=== PATIENT | female | born 2000 | race Caucasian/White ===

== ENCOUNTER 2023-11-06 20:32 | Emergency (ER) | payer OTHER, SELFPAY ==
[2023-11-06 20:47] VITALS: BP 127/67; PULSE 105; RESP 18; TEMP 37.2; O2SAT 96; BMI 32.1
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
[2023-11-06] MEDS: Doxycycline Monohydrate 100 MG CAPSULE PO (22:02)
[2023-11-06] MEDS: metroNIDAZOLE 500 MG TABLET PO (22:02)
[2023-11-06] MEDS: Fluconazole 150 MG TABLET PO (22:02)
[2023-11-06] MEDS: cefTRIAXone sodium 500 MG, Lidocaine HCl 1 % MPF 1 ML IM (22:03)
[2023-11-06 22:24] VITALS: BP 127/67; PULSE 88; RESP 18; TEMP 37.2; O2SAT 98
[2023-11-07 01:28] LABS: CT PCR NOT DETECTED (Not Detect.); NG PCR DETECTED (Not Detect.)
== END 2023-11-06 22:25 | disposition home or self-care (01) ==
PROVIDERS: Emergency Provider Internal Medicine
DX: N89.8 Other specified noninflammatory disorders of vagina (principal); Z20.2 Contact with and (suspected) exposure to infections with a predominantly sexual mode of transmission
CPT/HCPCS: 0353U; 96372; 99282; 99284; J0696

== ENCOUNTER 2024-05-01 16:18 | Inpatient (IN) | payer OTHER, SELFPAY ==
[2024-05-01 15:35] VITALS: BP 148/70; PULSE 118; O2SAT 98; BMI 26.2
--- NOTE | 2024-05-01 15:36 | MHC.CARE ---
Pt brought in by Yesica AKINS and Co-response clinician on a Section 12a with a disposition of IPLOC. [facility] to send assessment. Pt is reportedly manic, agitated, religiously preoccupied, endorsing SI/HI and just had children removed by DCF this past weekend.
[2024-05-01 16:11] LABS: MANUAL DIFF FLAG NO
--- NOTE | 2024-05-01 16:14 | PC.NURSE ---
shawna from home on a section 12 placed by [facility]. pt presents to ED after PD was called for crisis d/t SI/HI/manic behavior. calm/cooperative during EMS transport. no known diagnosis - familial hx of bipolar disorder/schizophrenia. recently had child taken by DCF. upon pod arrival - pt a&ox4. vss and up to date. pt calm/cooperative. pt changed over by security - belongings placed in locker #5. urine obtained/sent to lab. pt on RA w/o difficulty. no sob/wob noted. respirations even/unlabored. plan of care ongoing.
[2024-05-01 16:15] LABS: Basophils Percent Auto 0.2 % (0-2); Eosinophils Absolute Auto 0.1 X10*3/uL (0.0-0.4); Eosinophils Percent Auto 0.9 % (0-4); Hematocrit 39.4 % (37.0-47.0); Hemoglobin 13.2 g/dl (12.0-16.0); Imm Gran Abs Auto 0.02 X10*3/uL (0.00-0.03); Imm Gran Pct Auto 0.4 % (0.0-0.4); Lymphocytes Absolute Auto 1.5 X10*3/uL (1.2-4.9); Lymphocytes Percent Auto 26.3 % (20-40); Mean Corpuscular HGB Conc 33.5 g/dl (31.0-35.0); Mean Corpuscular Hemoglobin 29.9 pg (27.0-33.0); Mean Corpuscular Volume 89.1 fL (80.0-98.0); Mean Platelet Volume 10.6 fL (9.4-12.3); Monocytes Absolute Auto 0.5 X10*3/uL (0.1-1.2); Monocytes Percent Auto 8.8 % (2-11); Neutrophils Absolute Auto 3.5 x10*3/uL (2.0-8.3); Neutrophils Percent Auto 63.4 % (45-73); Platelet Count 221 X10*3/uL (160-400); Red Blood Count 4.42 X10*6/uL (4.20-5.50); Red Cell Distribution Width 13.1 % (11.0-16.0); White Blood Count 5.6 X10*3/uL (4.8-10.8)
[2024-05-01 16:16] LABS: Appearance Urine Clear; Color Urine Yellow; Glucose Urine UA Negative (Negative); Leukocyte Esterase Urine Negative (Negative); Nitrite Urine Negative (Negative); Specific Gravity - Urine >= 1.030 (1.005-1.025); UMIC TRIGGER UACC YES; Urine Blood Moderate (2+) (Negative); Urine Ketones Trace mg/dL (Negative); Urine Protein Trace mg/dL (Neg-Trace)
[2024-05-01 16:26] LABS: Amphetamine Screen Urine Not Detected (Not Detect); Barbiturates, Urine Not Detected (Not Detect); Benzodiazepines Screen Urine Not Detected (Not Detect); Buprenorphine Scr Not Detected (Not Detect); Cannabinoid Screen Urine POSITIVE (Not Detect); Cocaine Screen Urine Not Detected (Not Detect); Fentanyl, urine Not Detected (Not Detect); Methadone Screen, Urine Not Detected (Not Detect); Opiate Screen Urine Not Detected (Not Detect); Oxycodone Screen Urine Not Detected (Not Detect); Phencyclidine Screen Urine Not Detected (Not Detect)
[2024-05-01 16:29] LABS: Bacteria Urine None Seen (None Seen); Calcium Oxalate Crystals Urine Present; Hyaline Casts Urine 0-2 /LPF (0-2); RBC Urine 0-2 /HPF (0-2); WBC Urine 0-5 /HPF (0-5)
[2024-05-01 16:37] LABS: Alanine Aminotransferase 16 U/L (0-31); Albumin Level 4.4 g/dL (3.5-5.0); Alkaline Phosphatase 58 U/L (39-117); Anion Gap 13 (12-20); Aspartate Amino Transferase 27 U/L (5-31); Bilirubin Total 0.2 mg/dL (0.0-1.0); Blood Urea Nitrogen 15 mg/dL (9-16); Calcium 9.4 mg/dL (8.4-10.2); Carbon Dioxide 22 mmol/L (22-29); Chloride 109 mmol/L (96-108); Creatinine Clr Calc Pharmacy 97.3; Estimated Glomerular Filt Rate > 60; Glucose Random 104 mg/dL (60-115); Sodium 140 mmol/L (135-145); Total Protein 7.6 g/dL (6.5-8.0)
--- NOTE | 2024-05-01 16:37 | ED_ITS ---
HPI - Psych General Chief Complaint: Psychiatric Symptoms Stated Complaint: SEC 12 BY NADYAN, MANIC EP PER EMS Time Seen by Provider: 05/01/24 15:45 History of Present Illness HPI Narrative: patient is a 24-year-old female placed on a section 12 by 10. Patient came to the ED after crisis was called due to manic behavior. Patient denies any suicidal homicidal ideation. Family history of bipolar / schizophrenia. Patient was taken by [facility] as a child. Related Data Previous Rx's ?Medication ?Instructions ?Recorded doxycycline hyclate 100 mg tablet 100 mg PO BID 7 days #14 tabs 11/06/23 fluconazole 150 mg tablet 150 mg PO Q3D 2 doses #1 tab 11/06/23 metronidazole 500 mg tablet 500 mg PO BID 7 days #14 tabs 11/06/23 Allergies Allergy/AdvReac Type Severity Reaction Status Date / Time latex Allergy Rash Verified 05/01/24 15:38 Review of Systems 2 Review of Systems: No fever no chills no chest pain or shortness of breath no nausea no vomiting Yes all other systems are reviewed and are negative [facility] Past Medical History Attestation statement: The following information was validated with the patient. Social History Social History Alcohol intake: current Alcohol intake frequency: holidays/special occasions only Smoked in Last 30 Days: No Use of substances other than those prescribed or required for medical reasons: Yes Substance Use Type: Marijuana Advance Directives: No Advance Directives Information Provided: No Do you have a plan to hurt others: No Plan Patient : No Physical Exam 2 Vital Signs: Vital Signs: BMI result Body Mass Index 26.2 Appearance: Alert. Oriented X3. No acute distress. Eyes: Pupils equal, round and reactive to light. ENT: Pharynx normal. Neck: Normal inspection. Neck supple. No lymph nodes noted. No crepitus CVS: Normal heart rate and rhythm. Pulses normal. Normal S1 and S2 Respiratory: No respiratory distress. Breath sounds normal. No Wheezing. No rales Abdomen: Soft and nontender. No rigidity. No distention. good BS x4 Skin: Skin warm and dry. Normal skin color. Normal skin turgor. Extremities: No lower extremity edema. Neurovascular intact to all extremities. No Lacerations. No Rash Neuro: Oriented X 3. No motor deficit. No sensory deficit. Moving all extermities. No slurred speech. Cranial nerves grossly intact Medical Decision Making Medical Decision Making [facility] Narrative: Patient well-appearing a section 12 was placed by [facility]. Currently not suicidal homicidal. History of manic behavior. Right now cooperative. Family history of bipolar / schizophrenia. Recent stressors in life. Patient is currently awaiting crisis evaluation. Differential Diagnosis Differential Diagnoses: The differential diagnosis associated with the presentation includes Bipolar, schiz0 Admission/Observation Consideration of admission/observation: Escalation of care including admission/observation considered Lab Data [facility] Lab Attestation statement: I reviewed the patient's lab results. 05/01/24 16:05 05/01/24 16:05 Labs: Lab Results 05/01/24 05/01/24 Range/Units 16:05 16:06 WBC 5.6 (4.8-10.8) X10*3/uL RBC 4.42 (4.20-5.50) X10*6/uL Hgb 13.2 (12.0-16.0) g/dl Hct 39.4 (37.0-47.0) % MCV 89.1 (80.0-98.0) fL MCH 29.9 (27.0-33.0) pg MCHC 33.5 (31.0-35.0) g/dl RDW 13.1 (11.0-16.0) % Plt Count 221 (160-400) X10*3/uL MPV 10.6 (9.4-12.3) fL Immature Gran % (Auto) 0.4 (0.0-0.4) % Neut % (Auto) 63.4 (45-73) % Lymph % (Auto) 26.3 (20-40) % [place] % (Auto) 8.8 (2-11) % Eos % (Auto) 0.9 (0-4) % Baso % (Auto) 0.2 (0-2) % Lymph # (Auto) 1.5 (1.2-4.9) X10*3/uL [place] # (Auto) 0.5 (0.1-1.2) X10*3/uL Eos # (Auto) 0.1 (0.0-0.4) X10*3/uL Baso # (Auto) 0.0 (0.0-0.2) X10*3/uL Abs Immat Gran (auto) 0.02 (0.00-0.03) X10*3/uL Absolute Neuts (auto) 3.5 (2.0-8.3) x10*3/uL Absolute Nucleated RBC 0.000 (0.0-0.012) X10*3/uL Nucleated RBC % (auto) 0.0 (0.0-0.2) /100WBC Sodium 140 (135-145) mmol/L Potassium 4.0 (3.3-5.1) mmol/L Chloride 109 H (96-108) mmol/L Carbon Dioxide 22 (22-29) mmol/L Anion Gap 13 (12-20) BUN 15 (9-16) mg/dL Creatinine 0.82 (0.5-1.4) mg/dL Estim Creat Clear Calc 97.3 Estimated GFR > 60 Random Glucose 104 (60-115) mg/dL Calcium 9.4 (8.4-10.2) mg/dL Total Bilirubin 0.2 (0.0-1.0) mg/dL Direct Bilirubin < 0.2 (0.0-0.5) mg/dL AST 27 (5-31) U/L ALT 16 (0-31) U/L Alkaline Phosphatase 58 (39-117) U/L Total Protein 7.6 (6.5-8.0) g/dL Albumin 4.4 (3.5-5.0) g/dL Urine Color Yellow Urine Appearance Clear Urine pH 6.0 (5.0-9.0) Ur Specific [place] >= 1.030 H (1.005-1.025) Urine Protein Trace (Neg-Trace) mg/dL Urine Glucose (UA) Negative (Negative) mg/dL Urine Ketones Trace (Negative) mg/dL Urine Blood Moderate (2+) H (Negative) Urine Nitrite Negative (Negative) Ur Leukocyte Esterase Negative (Negative) Urine RBC 0-2 (0-2) /HPF Urine WBC 0-5 (0-5) /HPF Ur Squamous Epith Cells 3-5 (0-2) /HPF Calcium Oxalate Crystal Present Urine Bacteria None Seen (None Seen) Hyaline Casts 0-2 (0-2) /LPF Urine Opiates Screen Not Detected (Not Detect) Ur Buprenorphine Scrn Not Detected (Not Detect) ng/mL Ur Oxycodone Screen Not Detected (Not Detect) ng/mL Urine Methadone Screen Not Detected (Not Detect) ng/mL Urine Fentanyl Screen Not Detected (Not Detect) Ur Barbiturates Screen Not Detected (Not Detect) Ur Phencyclidine Scrn Not Detected (Not Detect) Ur Amphetamines Screen Not Detected (Not Detect) U Benzodiazepines Scrn Not Detected (Not Detect) Urine Cocaine Screen Not Detected (Not Detect) U Marijuana (THC) Screen POSITIVE H (Not Detect) Ethyl Alcohol < 10 mg/dL Independent Historian Clinical information obtained from an independent historian. History obtained from or confirmed by: EMS Chronic Conditions history Social Determinants Patient?s care significantly limited by Social Determinants of Health including: Low income and Problems related to primary support group Discharge Plan Discharge Clinical Impression: Suicidal ideation Patient Disposition: Still a Patient Prescriptions: No Action fluconazole 150 mg tablet 150 mg PO Q3D Qty: 1 0RF metronidazole 500 mg tablet 500 mg PO BID 7 Days Qty: 14 0RF doxycycline hyclate 100 mg tablet 100 mg PO BID 7 Days Qty: 14 0RF Interventions: [place]ck[place]-Suicide Risk Severity Scale Last Done: 05/01/24 16:42 Print Language: Belarusian
[2024-05-01 17:02] LABS: Bilirubin Direct < 0.2 mg/dL (0.0-0.5); Ethanol < 10 mg/dL
[2024-05-02 06:13] VITALS: BP 139/84; PULSE 80; RESP 16; TEMP 36.2; O2SAT 98
--- NOTE | 2024-05-02 06:32 | PC.NURSE ---
Patient slept through the night, no distress observed/reported, no behavior and safety concerns, VSS, disposition per [facility] is section 12 inpatient bed search, will continue to monitor
--- NOTE | 2024-05-02 06:43 | PC.NURSE ---
Patient slept through the night, no distress observed/reported, currently not on any medication, no behavior and safety concerns, VSS, disposition per [facility] is section-12 inpatient bed search, will continue to monitor
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
--- NOTE | 2024-05-02 08:35 | PHA.MEDREC ---
Addendum entered by Maxine Wolf RPh 05/02/24 08:40: reviewed by [facility]. Original Note: Pharmacy Consult ? Medication Reconciliation Pharmacy has reviewed the medication reconciliation done by nursing.
[2024-05-02] MEDS: Nicotine Polacrilex 2 MG GUM BUCCAL ×5 (08:36→23:40)
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
[2024-05-02] MEDS: LORazepam 1 MG TABLET 2 MG PO (12:46)
[2024-05-02 13:12] LABS: UPreg QC Valid YES; Urine Pregnancy NEGATIVE (NEGATIVE)
--- NOTE | 2024-05-02 13:29 | PC.NURSE ---
pt told she is a section and was initially very upset and crying but after speaking with father Seymour, she ws calm and did accept ativan, states she has 3 years of sleep to catch up on and was pleasant
[2024-05-02 16:39] VITALS: BP 111/60; PULSE 72; RESP 15; TEMP 36.6; O2SAT 98
[2024-05-02 16:51] VITALS: BP 137/77; PULSE 95; RESP 16; TEMP 36.6; O2SAT 97
[2024-05-02 17:32] VITALS: BMI 25.2
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
[2024-05-02 20:00] VITALS: BP 123/80; PULSE 95; RESP 16; TEMP 36.8; O2SAT 99
[2024-05-02] MEDS: hydrOXYzine HCL 25 MG TABLET PO (23:54)
--- NOTE | 2024-05-03 00:33 | PC.NURSE ---
Mary declined Flu vaccine when offered tonight, stated I'll take tomorrow, I just want to sleep and my arm is sore.
[2024-05-03 07:00] VITALS: BMI 25.2
[2024-05-03 07:05] VITALS: BP 121/75; RESP 14; TEMP 36.3; O2SAT 99
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
[2024-05-03] MEDS: Flu Vacc TS2024-25(6mos up)/PF 0.5 ML SYRINGE IM (10:30)
[2024-05-03] MEDS: Nicotine Polacrilex 2 MG GUM BUCCAL ×7 (11:20→23:51)
--- NOTE | 2024-05-03 11:57 | MHC.CLN ---
RE; CONSULT HT 63 WT 142# IBW 115#+/-10% PT IS 123% IBW INDICATES OBESE FOR HT PT REPORTED 40# WT LOSSX 6MONTHS CURRENT WT 64.6KG (05/02/24) PREVIOUS 82.3KG (11/06/23) PT TRIGGERS FOR 22% SIGNIFICANT WT LOSS X 6 MONTHS PT RECEIVING REGULAR DIET NO S/S MALNUTRITION AT THIS TIME MONITOR PO INTAKE RECOMMEND GOAL OF WT MAINTENANCE AT THIS TIME IF PO INTAKE <25% X 3 DAYS, RECOMMEND ADDING NUTRITION SUPPLEMENT WEEKLY WTs
[2024-05-03 14:46] LABS: Estimated Average Glucose 100 mg/dL; Hemoglobin A1C 116.7806 umol/L; Hemoglobin A1c % 5.1 % (<6.0); Total Hemoglobin (HGBA1C) 3564.7351 umol/L
[2024-05-03 14:57] LABS: Cholesterol 156 mg/dL (<200); HDL Cholesterol 31 mg/dL (>40); LDL Cholesterol Calculated 97 mg/dL (<100); Triglycerides 144 mg/dL (<150)
[2024-05-03] MEDS: ARIPiprazole 2 MG TABLET PO (15:07)
[2024-05-03 15:12] LABS: Free T4 (Free Thyroxine) 1.11 ng/dL (0.71-1.85); Thyroid Stimulating Hormone 0.81 uIU/mL (0.32-4.0)
[2024-05-03 15:25] LABS: Folate 11.1 ng/mL (> or = 4.0); Vitamin B12 242 pg/mL (200-900)
[2024-05-03 20:00] VITALS: BP 123/80; PULSE 87; RESP 16; TEMP 36.6; O2SAT 100
[2024-05-03] MEDS: hydrOXYzine HCL 25 MG TABLET PO (22:19)
[2024-05-03] MEDS: traZODone HCL 50 MG TABLET PO (23:49)
[2024-05-04 07:33] VITALS: BP 120/64; PULSE 65; RESP 16; TEMP 36.5; O2SAT 97
[2024-05-04] MEDS: ARIPiprazole 2 MG TABLET 4 MG PO (09:09)
[2024-05-04] MEDS: Nicotine Polacrilex 2 MG GUM BUCCAL ×2 (09:09→10:50)
[2024-05-04 12:52] LABS: HIV AB/AG Nonreactive (Nonreactive); HIV Num 1 0.07 S/CO (0.00-0.99); Syphilis Screen Nonreactive (Nonreactive); ~HepC Num1 0.06 S/CO (0.00-0.79); ~Hepatitis C Antibody Nonreactive (Nonreactive)
[2024-05-04 13:11] LABS: Bacterial Vaginosis PCR POSITIVE (Negative); Candida Group PCR NOT DETECTED (Not Detect); Candida glab krusei PCR NOT DETECTED (Not Detect); Trichomonas vaginalis PCR NOT DETECTED (Not Detect)
[2024-05-04] MEDS: Nicotine Polacrilex 2 MG GUM 4 MG BUCCAL ×4 (13:38→21:35)
[2024-05-04 13:42] LABS: CT PCR NOT DETECTED (Not Detect.); NG PCR NOT DETECTED (Not Detect.)
--- NOTE | 2024-05-04 14:46 | HO.PSYCHPN ---
Subjective Subjective Date of Service: 05/04/24 Reason For Visit: Bruna Interim History: calm, cooperative, pleasant. less labile today. agreeable to titrate up to 10 mg abilify daily. c/o poor sleep, awakening in a state of panic and asweat. agreeable to add prazosin 1 mg at HS. reports foul-smelling vaginal discharge, believes she may have STD, asking for testing to be ordered. per staff, pleasant. taking meds. cooperative. feels she is in [facility]. labile, tearful. slept 7 hours. Mental Status Exam Mental Status Exam Narrative: dressed in hospital garb, disheveled. cooperative. fidgety. speech incr rate, nml amount, nml loudness. decr latency. thoughts linear and logical without obvious delusions or paranoia. affect non-labile, normo-intense. mood more even. no SI/SIBI/HI/AVH expressed. Diagnostics Vital Signs (24Hr): Vital Signs - 24 hr 05/03/24 20:00 05/04/24 07:33 Temperature 97.9 F 97.7 F Pulse Rate 87 65 Respiratory Rate 16 16 Blood Pressure 123/80 120/64 Pulse Oximetry 100 97 Oxygen Delivery Method Room Air Room Air BMI result Body Mass Index 25.2 Labs 05/01/24 16:05 05/01/24 16:05 Labs: Laboratory Results - last 48 hr 05/03/24 05/04/24 05/04/24 14:28 11:08 12:07 Estimat Average Glucose 100 Hemoglobin A1c % 5.1 Triglycerides 144 Cholesterol 156 LDL Cholesterol, Calc 97 HDL Cholesterol 31 L Vitamin B12 242 Folate 11.1 TSH 0.81 Free T4 1.11 T.pallidum Ab (EIA) Nonreactive Chlam trachomat DNA PCR NOT DETECTED Hepatitis C Ab (EIA) Nonreactive HIV 1&2 Ab/P24 Ag 4thGn Nonreactive N.gonorrhoeae DNA (PCR) NOT DETECTED T. vaginalis (PCR) NOT DETECTED Bact vaginosis (PCR) POSITIVE A C. krusei/glabrata (PCR) NOT DETECTED Meryl group (PCR) NOT DETECTED Medications Medications Current Medications Acetaminophen (Acetaminophen 325 Mg Tablet) 650 mg PO Q6H PRN PRN Reason: Headache/Pain Mild Scale (1-3) Al Hydroxide/Mg Hydroxide (Magnesium Hydrox/Alum Hydrox 30 Ml Oral.Susp) 30 ml PO Q6H PRN PRN Reason: Heartburn/Nausea Aripiprazole (Aripiprazole 2 Mg Tablet) 6 mg PO ONCE ONE Stop: 05/05/24 09:01 Aripiprazole (Aripiprazole 2 Mg Tablet) 8 mg PO ONCE ONE Stop: 05/06/24 09:01 Aripiprazole (Aripiprazole 10 Mg Tablet) 10 mg PO DAILY RALPH Hydroxyzine HCl (Hydroxyzine Hcl 25 Mg Tablet) 25 mg PO Q6H PRN PRN Reason: Anxiety Last Admin: 05/03/24 22:19 Dose: 25 mg Magnesium Hydroxide (Milk Of Magnesia 30 Ml Oral.Susp) 30 ml PO DAILY PRN PRN Reason: Constipation Nicotine Polacrilex (Nicotine Polacrilex 2 Mg Gum) 4 mg BUCCAL Q1H PRN PRN Reason: Nicotine Cravings Last Admin: 05/04/24 13:38 Dose: 4 mg Prazosin HCl (Prazosin Hcl 1 Mg Capsule) 1 mg PO BEDTIME RALPH; Protocol Trazodone HCl (Trazodone Hcl 50 Mg Tablet) 50 mg PO BEDTIME MRX1 PRN PRN Reason: Insomnia Last Admin: 05/03/24 23:49 Dose: 50 mg Allergies Allergies Allergy/AdvReac Type Severity Reaction Status Date / Time latex Allergy Rash Verified 05/01/24 15:38 Assessment & Plan Assessment & Plan (1) Unspecified mood [affective] disorder: Status: Acute Code(s): F39 - Unspecified mood [affective] disorder (2) Cannabis use disorder: Status: Acute Code(s): F12.90 - Cannabis use, unspecified, uncomplicated (3) Nicotine dependence: Status: Acute Code(s): F17.200 - Nicotine dependence, unspecified, uncomplicated (4) Bacterial vaginosis: Status: Acute Code(s): N76.0 - Acute vaginitis; B96.89 - Other specified bacterial agents as the cause of diseases classified elsewhere Plan 05/03: start abilify 2 mg now, increase to 4 mg tomorrow for mood stabilization. reports of untreated STD? discuss with pt and test/treat as indicated. 05/04: BV - add flagyl 500 BID x 7 days. titrate abilify at 2 mg per day through 10 mg as of tuesday morning (orders entered). add prazosin 1 at HS for insomnia/sleep agitation. T/C adding mood stabilizer as appears indicated. likely DC next mon or . Reason for continued inpatient stay Substantial Risk for: harm to others, inability to function and rapid decompensation Time Spent With Patient Time: Total time managing care of this patient today __35__ minutes.
[2024-05-04 19:40] VITALS: BP 108/66; PULSE 89; RESP 16; TEMP 36.8; O2SAT 98
[2024-05-04] MEDS: metroNIDAZOLE 500 MG TABLET PO (21:44)
[2024-05-04] MEDS: traZODone HCL 50 MG TABLET PO ×2 (21:44→22:59)
[2024-05-04 21:45] VITALS: BP 134/78
[2024-05-04] MEDS: Prazosin HCL 1 MG CAPSULE PO (21:45)
[2024-05-05] MEDS: Nicotine Polacrilex 2 MG GUM 4 MG BUCCAL ×11 (07:16→23:42)
[2024-05-05 07:20] VITALS: BP 122/72; PULSE 115; RESP 14; TEMP 36.6; O2SAT 97
--- NOTE | 2024-05-05 07:39 | HO.PSYCHPN ---
Subjective Subjective Date of Service: 05/05/24 Reason For Visit: Bruna Subjective Notes: Conditional Voluntary Interim History: Pt reports she is feels better than when she came to the hospital. She reports she does not feel as anxious and worried. She denies SI/HI. She has been visible on the unit. Does appear somewhat internally preoccupied but not fully disclosing. No behavioral concerns. Review of Systems Review of Systems No fever no chills no chest pain or shortness of breath no nausea no vomiting Yes all other systems are reviewed and are negative Mental Status Exam Mental Status Exam Narrative: dressed in hospital garb, disheveled. cooperative. fidgety. speech incr rate, nml amount, nml loudness. decr latency. thoughts linear and logical without obvious delusions or paranoia. affect non-labile, normo-intense. mood more even. no SI/SIBI/HI/AVH expressed. Diagnostics Vital Signs (24Hr): Vital Signs - 24 hr 05/04/24 19:40 05/04/24 21:45 Temperature 98.2 F Pulse Rate 89 Respiratory Rate 16 Blood Pressure 108/66 134/78 Pulse Oximetry 98 Oxygen Delivery Method Room Air BMI result Body Mass Index 25.2 Labs 05/01/24 16:05 05/01/24 16:05 Labs: Laboratory Results - last 48 hr 05/03/24 05/04/24 05/04/24 14:28 11:08 12:07 Estimat Average Glucose 100 Hemoglobin A1c % 5.1 Triglycerides 144 Cholesterol 156 LDL Cholesterol, Calc 97 HDL Cholesterol 31 L Vitamin B12 242 Folate 11.1 TSH 0.81 Free T4 1.11 T.pallidum Ab (EIA) Nonreactive Chlam trachomat DNA PCR NOT DETECTED Hepatitis C Ab (EIA) Nonreactive HIV 1&2 Ab/P24 Ag 4thGn Nonreactive N.gonorrhoeae DNA (PCR) NOT DETECTED T. vaginalis (PCR) NOT DETECTED Bact vaginosis (PCR) POSITIVE A C. krusei/glabrata (PCR) NOT DETECTED Meryl group (PCR) NOT DETECTED Medications Medications Current Medications Acetaminophen (Acetaminophen 325 Mg Tablet) 650 mg PO Q6H PRN PRN Reason: Headache/Pain Mild Scale (1-3) Al Hydroxide/Mg Hydroxide (Magnesium Hydrox/Alum Hydrox 30 Ml Oral.Susp) 30 ml PO Q6H PRN PRN Reason: Heartburn/Nausea Aripiprazole (Aripiprazole 2 Mg Tablet) 6 mg PO ONCE ONE Stop: 05/05/24 09:01 Aripiprazole (Aripiprazole 2 Mg Tablet) 8 mg PO ONCE ONE Stop: 05/06/24 09:01 Aripiprazole (Aripiprazole 10 Mg Tablet) 10 mg PO DAILY RALPH Hydroxyzine HCl (Hydroxyzine Hcl 25 Mg Tablet) 25 mg PO Q6H PRN PRN Reason: Anxiety Last Admin: 05/03/24 22:19 Dose: 25 mg Magnesium Hydroxide (Milk Of Magnesia 30 Ml Oral.Susp) 30 ml PO DAILY PRN PRN Reason: Constipation Metronidazole (Metronidazole 500 Mg Tablet) 500 mg PO Q12H RALPH Stop: 05/11/24 09:01 Last Admin: 05/04/24 21:44 Dose: 500 mg Nicotine Polacrilex (Nicotine Polacrilex 2 Mg Gum) 4 mg BUCCAL Q1H PRN PRN Reason: Nicotine Cravings Last Admin: 05/05/24 07:16 Dose: 4 mg Prazosin HCl (Prazosin Hcl 1 Mg Capsule) 1 mg PO BEDTIME RALPH; Protocol Last Admin: 05/04/24 21:45 Dose: 1 mg Trazodone HCl (Trazodone Hcl 50 Mg Tablet) 50 mg PO BEDTIME MRX1 PRN PRN Reason: Insomnia Last Admin: 05/04/24 22:59 Dose: 50 mg Allergies Allergies Allergy/AdvReac Type Severity Reaction Status Date / Time latex Allergy Rash Verified 05/01/24 15:38 Assessment & Plan Assessment & Plan (1) Unspecified mood [affective] disorder: Status: Acute Code(s): F39 - Unspecified mood [affective] disorder (2) Cannabis use disorder: Status: Acute Code(s): F12.90 - Cannabis use, unspecified, uncomplicated (3) Nicotine dependence: Status: Acute Code(s): F17.200 - Nicotine dependence, unspecified, uncomplicated (4) Bacterial vaginosis: Status: Acute Code(s): N76.0 - Acute vaginitis; B96.89 - Other specified bacterial agents as the cause of diseases classified elsewhere Plan 05/03: start abilify 2 mg now, increase to 4 mg tomorrow for mood stabilization. reports of untreated STD? discuss with pt and test/treat as indicated. 05/04: BV - add flagyl 500 BID x 7 days. titrate abilify at 2 mg per day through 10 mg as of tuesday morning (orders entered). add prazosin 1 at HS for insomnia/sleep agitation. T/C adding mood stabilizer as appears indicated. likely DC next tue or . 05/05 continue tx. Reason for continued inpatient stay Substantial Risk for: inability to function Time Spent With Patient Time: Total time managing care of this patient today ____ minutes.
[2024-05-05] MEDS: metroNIDAZOLE 500 MG TABLET PO ×2 (08:29→22:31)
[2024-05-05] MEDS: ARIPiprazole 2 MG TABLET 6 MG PO (08:29)
[2024-05-05 19:35] VITALS: BP 121/77; PULSE 93; RESP 16; TEMP 37.2; O2SAT 97
[2024-05-05] MEDS: traZODone HCL 50 MG TABLET PO ×2 (22:31→23:42)
[2024-05-05 22:32] VITALS: BP 116/60
[2024-05-05] MEDS: Prazosin HCL 1 MG CAPSULE PO (22:32)
[2024-05-06 08:30] VITALS: BP 138/68; PULSE 119; RESP 18; TEMP 36.8; O2SAT 97
[2024-05-06] MEDS: ARIPiprazole 2 MG TABLET 8 MG PO (08:33)
[2024-05-06] MEDS: Nicotine Polacrilex 2 MG GUM 4 MG BUCCAL ×8 (08:34→23:21)
[2024-05-06] MEDS: metroNIDAZOLE 500 MG TABLET PO ×2 (08:34→22:07)
--- NOTE | 2024-05-06 09:59 | HO.PSYCHPN ---
Subjective Subjective Date of Service: 05/06/24 Reason For Visit: Bruna Subjective Notes: Conditional Voluntary Interim History: Pt reports feeling better with medications. She does ask for increase in prazosin for nightmares. We also discussed increase in abilify to 15mg po daily to reach more therapeutic dose. She denies SI/HI. No overt psychosis or delusional content. She is visible on the unit. No behavioral concerns. Review of Systems Review of Systems No fever no chills no chest pain or shortness of breath no nausea no vomiting Yes all other systems are reviewed and are negative Mental Status Exam Mental Status Exam Narrative: dressed in hospital garb, disheveled. cooperative. fidgety. speech incr rate, nml amount, nml loudness. decr latency. thoughts linear and logical without obvious delusions or paranoia. affect non-labile, normo-intense. mood more even. no SI/SIBI/HI/AVH expressed. Diagnostics Vital Signs (24Hr): Vital Signs - 24 hr 05/05/24 19:35 05/05/24 22:32 05/06/24 08:30 Temperature 98.9 F 98.2 F Pulse Rate 93 119 H Respiratory Rate 16 18 Blood Pressure 121/77 116/60 138/68 Pulse Oximetry 97 97 Oxygen Delivery Method Room Air Room Air BMI result Body Mass Index 25.2 Labs 05/01/24 16:05 05/01/24 16:05 Labs: Laboratory Results - last 48 hr 05/04/24 05/04/24 11:08 12:07 T.pallidum Ab (EIA) Nonreactive Chlam trachomat DNA PCR NOT DETECTED Hepatitis C Ab (EIA) Nonreactive HIV 1&2 Ab/P24 Ag 4thGn Nonreactive N.gonorrhoeae DNA (PCR) NOT DETECTED T. vaginalis (PCR) NOT DETECTED Bact vaginosis (PCR) POSITIVE A C. krusei/glabrata (PCR) NOT DETECTED Meryl group (PCR) NOT DETECTED Medications Medications Current Medications Acetaminophen (Acetaminophen 325 Mg Tablet) 650 mg PO Q6H PRN PRN Reason: Headache/Pain Mild Scale (1-3) Al Hydroxide/Mg Hydroxide (Magnesium Hydrox/Alum Hydrox 30 Ml Oral.Susp) 30 ml PO Q6H PRN PRN Reason: Heartburn/Nausea Aripiprazole (Aripiprazole 10 Mg Tablet) 10 mg PO DAILY RALPH Hydroxyzine HCl (Hydroxyzine Hcl 25 Mg Tablet) 25 mg PO Q6H PRN PRN Reason: Anxiety Last Admin: 05/03/24 22:19 Dose: 25 mg Magnesium Hydroxide (Milk Of Magnesia 30 Ml Oral.Susp) 30 ml PO DAILY PRN PRN Reason: Constipation Metronidazole (Metronidazole 500 Mg Tablet) 500 mg PO Q12H RALPH Stop: 05/11/24 09:01 Last Admin: 05/06/24 08:34 Dose: 500 mg Nicotine Polacrilex (Nicotine Polacrilex 2 Mg Gum) 4 mg BUCCAL Q1H PRN PRN Reason: Nicotine Cravings Last Admin: 05/06/24 08:34 Dose: 2 mg Prazosin HCl (Prazosin Hcl 1 Mg Capsule) 1 mg PO BEDTIME RALPH; Protocol Last Admin: 05/05/24 22:32 Dose: 1 mg Trazodone HCl (Trazodone Hcl 50 Mg Tablet) 50 mg PO BEDTIME MRX1 PRN PRN Reason: Insomnia Last Admin: 05/05/24 23:42 Dose: 50 mg Allergies Allergies Allergy/AdvReac Type Severity Reaction Status Date / Time latex Allergy Rash Verified 05/01/24 15:38 Assessment & Plan Assessment & Plan (1) Unspecified mood [affective] disorder: Status: Acute Code(s): F39 - Unspecified mood [affective] disorder (2) Cannabis use disorder: Status: Acute Code(s): F12.90 - Cannabis use, unspecified, uncomplicated (3) Nicotine dependence: Status: Acute Code(s): F17.200 - Nicotine dependence, unspecified, uncomplicated (4) Bacterial vaginosis: Status: Acute Code(s): N76.0 - Acute vaginitis; B96.89 - Other specified bacterial agents as the cause of diseases classified elsewhere Plan 05/03: start abilify 2 mg now, increase to 4 mg tomorrow for mood stabilization. reports of untreated STD? discuss with pt and test/treat as indicated. 05/04: BV - add flagyl 500 BID x 7 days. titrate abilify at 2 mg per day through 10 mg as of tuesday morning (orders entered). add prazosin 1 at HS for insomnia/sleep agitation. T/C adding mood stabilizer as appears indicated. likely DC next tue or . 05/05 continue tx. 05/06 increase prazosin to 2mg po qhs. Increase abilify to 15mg po daily. Reason for continued inpatient stay Substantial Risk for: inability to function Time Spent With Patient Time: Total time managing care of this patient today ____ minutes.
[2024-05-06 20:00] VITALS: BP 139/79; PULSE 99; RESP 16; TEMP 36.9; O2SAT 98
[2024-05-06 22:06] VITALS: BP 115/67; PULSE 96
[2024-05-06] MEDS: Prazosin HCL 1 MG CAPSULE 2 MG PO (22:07)
[2024-05-06] MEDS: traZODone HCL 50 MG TABLET PO ×2 (22:08→23:43)
[2024-05-07 07:40] VITALS: BP 108/58; PULSE 82; RESP 14; TEMP 36.3; O2SAT 98
[2024-05-07] MEDS: ARIPiprazole 15 MG TABLET PO (08:46)
[2024-05-07] MEDS: metroNIDAZOLE 500 MG TABLET PO ×2 (08:46→22:23)
[2024-05-07] MEDS: Nicotine Polacrilex 2 MG GUM 4 MG BUCCAL ×6 (08:47→23:00)
--- NOTE | 2024-05-07 10:56 | HO.PSYCHPN ---
Subjective Subjective Date of Service: 05/07/24 Reason For Visit: Bruna Interim History: Met with patient; discussed with team; reviewed chart pt explained episode prior to this admission; her mindset, felt like she was defending herself against neighbors; discussed DCF involvement. She denies AVH; says she is likely on the spectrum for Autism... Flight Software Test Engineer discussed possible manic episode, however pt does not think so, but rather that she was just standing up for herself...Pt reports she is sleeping well and says now, no nightmares. regarding medications, she says she's tolerating well; pt says she woke up feeling really weak and had tremor but it self resolved and has not returned. pt wants to dc tomorrow and get back to her family. Diagnostics Vital Signs (24Hr): Vital Signs - 24 hr 05/06/24 20:00 05/06/24 22:06 05/07/24 07:40 Temperature 98.4 F 97.3 F Pulse Rate 99 96 82 Respiratory Rate 16 14 Blood Pressure 139/79 115/67 108/58 L Pulse Oximetry 98 98 Oxygen Delivery Method Room Air Room Air BMI result Body Mass Index 25.2 Labs 05/01/24 16:05 05/01/24 16:05 Medications Medications Current Medications Acetaminophen (Acetaminophen 325 Mg Tablet) 650 mg PO Q6H PRN PRN Reason: Headache/Pain Mild Scale (1-3) Al Hydroxide/Mg Hydroxide (Magnesium Hydrox/Alum Hydrox 30 Ml Oral.Susp) 30 ml PO Q6H PRN PRN Reason: Heartburn/Nausea Aripiprazole (Aripiprazole 15 Mg Tablet) 15 mg PO DAILY RALPH Last Admin: 05/07/24 08:46 Dose: 15 mg Hydroxyzine HCl (Hydroxyzine Hcl 25 Mg Tablet) 25 mg PO Q6H PRN PRN Reason: Anxiety Last Admin: 05/03/24 22:19 Dose: 25 mg Magnesium Hydroxide (Milk Of Magnesia 30 Ml Oral.Susp) 30 ml PO DAILY PRN PRN Reason: Constipation Metronidazole (Metronidazole 500 Mg Tablet) 500 mg PO Q12H RALPH Stop: 05/11/24 09:01 Last Admin: 05/07/24 08:46 Dose: 500 mg Nicotine Polacrilex (Nicotine Polacrilex 2 Mg Gum) 4 mg BUCCAL Q1H PRN PRN Reason: Nicotine Cravings Last Admin: 05/07/24 08:47 Dose: 2 mg Prazosin HCl (Prazosin Hcl 1 Mg Capsule) 2 mg PO BEDTIME RALPH; Protocol Last Admin: 05/06/24 22:07 Dose: 2 mg Trazodone HCl (Trazodone Hcl 50 Mg Tablet) 50 mg PO BEDTIME MRX1 PRN PRN Reason: Insomnia Last Admin: 05/06/24 23:43 Dose: 50 mg Allergies Allergies Allergy/AdvReac Type Severity Reaction Status Date / Time latex Allergy Rash Verified 05/01/24 15:38 Assessment & Plan Assessment & Plan (1) Unspecified mood [affective] disorder: Status: Acute Code(s): F39 - Unspecified mood [affective] disorder (2) Cannabis use disorder: Status: Acute Code(s): F12.90 - Cannabis use, unspecified, uncomplicated (3) Nicotine dependence: Status: Acute Code(s): F17.200 - Nicotine dependence, unspecified, uncomplicated (4) Bacterial vaginosis: Status: Acute Code(s): N76.0 - Acute vaginitis; B96.89 - Other specified bacterial agents as the cause of diseases classified elsewhere Plan 05/03: start abilify 2 mg now, increase to 4 mg tomorrow for mood stabilization. reports of untreated STD? discuss with pt and test/treat as indicated. 05/04: BV - add flagyl 500 BID x 7 days. titrate abilify at 2 mg per day through 10 mg as of tuesday morning (orders entered). add prazosin 1 at HS for insomnia/sleep agitation. T/C adding mood stabilizer as appears indicated. likely DC next tue or . 05/05 continue tx. 05/06 increase prazosin to 2mg po qhs. Increase abilify to 15mg po daily. 05/07 pt explained episode prior to this admission; her mindset, felt like she was defending herself against neighbors; discussed DCF involvement. She denies AVH; says she is likely on the spectrum for Autism... Flight Software Test Engineer discussed possible manic episode, however pt does not think so, but rather that she was just standing up for herself...Pt reports she is sleeping well and says now, no nightmares. -pt wants to dc tomorrow and get back to her family. -regarding medications, she says she's tolerating well; pt says she woke up feeling really weak and had tremor but it self resolved and has not returned. Impression: publicity writer covering and meeting pt for the first time. Pt has been in good behavioral and impulse control; she is taking medications that seem helpful. Pt has some limited insight into her behaviors prior to this admission but feels medications and helpful and will continue taking them. Pt is requesting discharge. DCF remains involved. She is not in imminent risk for harm to self or others and request for discharge honored. Patient educated on: diagnosis, medication risk/benefits and therapeutic strategies Informed Consent: understands and further education needed Reason for continued inpatient stay Substantial Risk for: stable for discharge Time Spent With Patient Time: Total time managing care of this patient today ____ minutes.
[2024-05-07 20:00] VITALS: BP 133/71; PULSE 95; RESP 16; TEMP 36.8; O2SAT 100
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
[2024-05-07 22:14] VITALS: BP 119/71; PULSE 99
[2024-05-07] MEDS: Prazosin HCL 1 MG CAPSULE 2 MG PO (22:23)
[2024-05-07] MEDS: traZODone HCL 50 MG TABLET PO (22:24)
[2024-05-08 06:24] VITALS: BP 129/72; PULSE 100
[2024-05-08] MEDS: Nicotine Polacrilex 2 MG GUM 4 MG BUCCAL ×2 (06:28→09:06)
[2024-05-08 07:38] VITALS: BP 141/77; PULSE 113; RESP 18; TEMP 36.3; O2SAT 98
[2024-05-08] MEDS: ARIPiprazole 15 MG TABLET PO (08:22)
[2024-05-08] MEDS: metroNIDAZOLE 500 MG TABLET PO (08:23)
[2024-05-08] MEDS: hydrOXYzine HCL 25 MG TABLET PO (08:24)
== END 2024-05-08 11:17 | disposition home or self-care (01) | DRG 753 ==
LOC: HO.ED 19:34 → HO.PADLT16 05-02 16:23
PROVIDERS: Emergency Medicine; Admitting Provider Psychiatry & Neurology Psychiatry; Emergency Provider Emergency Medicine Emergency Medical Services; PCP Family Medicine; Visit Provider Psychiatry & Neurology Psychiatry
DX: F31.9 Bipolar disorder, unspecified (principal); R45.851 Suicidal ideations; F12.90 Cannabis use, unspecified, uncomplicated; F17.210 Nicotine dependence, cigarettes, uncomplicated; F43.10 Post-traumatic stress disorder, unspecified; N76.0 Acute vaginitis; Z23 Encounter for immunization; Z71.6 Tobacco abuse counseling; Z79.899 Other long term (current) drug therapy
CPT/HCPCS: 0352U; 36415; 80053; 80061; 80307; 81001; 81025; 82248; 82607; 82746; 83036; 84439; 84443; 85025; 86780; 86803; 87389; 87491; 87591; 90656; 99285

== ENCOUNTER → 2024-05-02 16:22 | Outpatient (BNV) | payer OTHER, SELFPAY | PROVIDERS: Admitting Provider Psychiatry & Neurology Psychiatry; Emergency Provider Emergency Medicine Emergency Medical Services; PCP Family Medicine; Visit Provider Psychiatry & Neurology Psychiatry | DX: F39 Unspecified mood [affective] disorder (principal); F12.90 Cannabis use, unspecified, uncomplicated; F17.200 Nicotine dependence, unspecified, uncomplicated | CPT/HCPCS: 99231; 99232; 99233 ==

== ENCOUNTER 2024-06-05 11:48 | Outpatient (REF) | payer OTHER, SELFPAY ==
[2024-06-05 13:53] LABS: Amphetamine Screen Urine Not Detected (Not Detect); Barbiturates, Urine Not Detected (Not Detect); Benzodiazepines Screen Urine Not Detected (Not Detect); Buprenorphine Scr Not Detected (Not Detect); Cannabinoid Screen Urine POSITIVE (Not Detect); Cocaine Screen Urine Not Detected (Not Detect); Fentanyl, urine Not Detected (Not Detect); Methadone Screen, Urine Not Detected (Not Detect); Opiate Screen Urine Not Detected (Not Detect); Oxycodone Screen Urine Not Detected (Not Detect); Phencyclidine Screen Urine Not Detected (Not Detect)
== END 2024-06-05 11:49 | disposition home or self-care (01) ==
LOC: HO.LNP 11:48
PROVIDERS: Visit Provider Psychiatry & Neurology Psychiatry
DX: F31.12 Bipolar disorder, current episode manic without psychotic features, moderate (principal); F12.90 Cannabis use, unspecified, uncomplicated; F43.10 Post-traumatic stress disorder, unspecified
CPT/HCPCS: 80307

== ENCOUNTER → 2024-06-06 08:00 | Outpatient (BNV) | payer OTHER, SELFPAY | PROVIDERS: Visit Provider Psychiatry & Neurology Psychiatry | DX: F39 Unspecified mood [affective] disorder (principal); F43.10 Post-traumatic stress disorder, unspecified | CPT/HCPCS: 90834; 99214 ==

== ENCOUNTER 2024-06-18 08:30 | Outpatient (RCR) | payer OTHER, SELFPAY ==
[2024-06-05 11:51] VITALS: BP 92/50; PULSE 76; TEMP 37.3
[2024-06-05 13:49] VITALS: BMI 26.0
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
--- NOTE | 2024-06-07 15:07 | HO.PHP ---
Client's case has been opened and reviewed in team.
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
--- NOTE | 2024-06-18 21:32 | P.PNPSP_ITS ---
Subjective Subjective Date of Service: 06/18/24 Reason For Visit: depression Interim History: Patient seen for follow-up, anticipating discharge at the end of program today.? not feeling totally ready... I really like being here Still working with [facility]. Focused on self-care and next steps toward getting her children back. 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 Symptoms recurred and we discuss and identify some contributing factors. HAs been treated on Reports no other acute issues or concerns. Medication compliant, medications well-tolerated. Denies any adverse effects.? Mood is stable.? Denies any hopelessness or SI. Denies thoughts of harming self or others at this time. Denies any aggressive ideation or HI. Denies any paranoia or AH or VH. Sleep, appetite, energy stable. Mental Status Exam Mental Status Exam Narrative: Largely unremarkable pleasant. Engaged. Casually dressed and presented. Good hygiene. Organized. Euthymic. No SI or HI evident. No psychosis evident. Insight and judgment good Diagnostics Vital Signs (24Hr): BMI result Body Mass Index 26.0 Assessment & Plan Assessment & Plan (1) Unspecified mood [affective] disorder: Status: Acute Code(s): F39 - Unspecified mood [affective] disorder (2) PTSD (post-traumatic stress disorder): Status: Acute Code(s): F43.10 - Post-traumatic stress disorder, unspecified Plan Discharge from [facility] continue Abilify 5 mg qhs may trial additional Abilify 2 mg qd, determine if benefits form this as standing 7 mg dose or as 2 mg prn or discont if optimized at 5 continue trazodone 50 mg qhs PRN sleep start metronidazole 500 mg BID prazosin discontinued Routine lab work ordered as indicated EKG, routine for baseline QTc for medication considerations as indicated UDS as indicated MassPat reviewed Defer to outpatient provider for ongoing medication management Patient educated on: diagnosis and medication risk/benefits Informed Consent: understands Reason for contiued partial hosp. stay Substantial Risk for: stable for discharge Certification I certify that partial hospital treatment is medically necessary due to the symptoms and problems resulting from the patient's mental illness and the failure to treat the patient at the partial hospital level of care would likely result in the patient requiring inpatient psychiatric care which could not be prevented at a less intensive level of care. Total time managing care of this patient today __30__ minutes. Discharge Plan Discharge Attending provider: Estrella Rosales Medications: New metronidazole 500 mg tablet 500 mg PO BID 4 Days Qty: 8 0RF Continued nicotine (polacrilex) 4 mg gum 4 mg buccal Q2H 30 Days Qty: 100 0RF aripiprazole 5 mg tablet 5 mg PO BEDTIME Qty: 30 0RF aripiprazole 2 mg tablet 2 mg PO BEDTIME Qty: 30 0RF trazodone 50 mg Tablet 50 mg PO BEDTIME PRN (Reason: Insomnia) 30 Days Qty: 30 0RF Discontinued aripiprazole 15 mg Tablet 15 mg PO DAILY 30 Days Qty: 30 0RF Patient Comments: Patient stated she has not taken this medication since 05/10/24. Stated she felt manic with increased energy when she took this medication. Rx Instructions: Patient stopped taking this medication on 05/10/24. prazosin 2 mg capsule 2 mg PO BEDTIME 30 Days Qty: 30 1RF Stand Alone Forms: Patient Portal Discharge page Patient Education: Bipolar Disorder (DC), Cannabis Abuse (DC) Print Language: Belgian
--- NOTE | 2024-06-28 23:13 | PM.EVENT ---
Event Note Date of Service: 06/28/24 Event Note: Patient reach out to request refills of ABilify and trazodone. Scripts efaxed to pharmacy. Provider appointment on 08/09/24. SHe will be due for another refill before then. Time Spent With Patient Time: Total time managing care of this patient today __5__ minutes.
== END 2024-06-18 23:59 | disposition home or self-care (01) ==
LOC: HO.PHPA 08:30
PROVIDERS: Visit Provider Psychiatry & Neurology Psychiatry
DX: F39 Unspecified mood [affective] disorder (principal); F43.10 Post-traumatic stress disorder, unspecified; F43.0 Acute stress reaction; F63.89 Other impulse disorders; F12.10 Cannabis abuse, uncomplicated; F17.200 Nicotine dependence, unspecified, uncomplicated; Z79.899 Other long term (current) drug therapy
CPT/HCPCS: 90791; 90853

== ENCOUNTER 2024-07-08 14:55 | Emergency (ER) | payer OTHER, SELFPAY ==
[2024-07-08 15:13] VITALS: BP 115/76; PULSE 101; RESP 18; TEMP 37.2; O2SAT 98; BMI 25.8
--- NOTE | 2024-07-08 15:13 | ED.GENADULT ---
HPI - General Adult General Chief complaint: General Medical Stated complaint: pt states: reoccurring symptoms Time Seen by Provider: 07/08/24 15:58 History of Present Illness HPI narrative: Patient with multiple complaints 1st complaint is she is having vaginal discharge and itching similar to prior episode of bacterial vaginosis For 2 days she has also had some burning with urination, no fever no vomiting no abdominal pain no flank pain For the last 3 days she has also had a very mild cough a runny nose some body aches some fatigue, but no productive cough no shortness of breath no chest pain no abdominal pain no sore throat no difficulty breathing or swallowing no rash Related Data Previous Rx's ?Medication ?Instructions ?Recorded nicotine (polacrilex) 4 mg gum 4 mg buccal Q2H 30 days #100 ea 05/07/24 metronidazole 500 mg tablet 500 mg PO BID 4 days #8 tabs 06/18/24 aripiprazole 2 mg tablet 2 mg PO BEDTIME as directed #30 06/28/24 tabs aripiprazole 5 mg tablet 5 mg PO BEDTIME as directed #30 06/28/24 tabs trazodone 50 mg tablet 50 mg PO BEDTIME PRN Insomnia 30 06/28/24 days #30 tabs metronidazole 500 mg tablet 500 mg PO BID 7 days #14 tabs 07/08/24 nitrofurantoin 100 mg PO Q12H 5 days #10 caps 07/08/24 monohydrate/macrocrystals 100 mg capsule (Macrobid) Allergies Allergy/AdvReac Type Severity Reaction Status Date / Time latex Allergy Rash Verified 07/08/24 15:16 [facility] Past Medical History Source: nursing notes reviewed Medical History (Updated 07/08/24 @ 17:17 by CHLOE Little) Loss of consciousness PTSD (post-traumatic stress disorder) Social History Social History Household Members: None Housing: Apartment Do you presently have visiting nurse or other home services: No Alcohol intake: current Alcohol intake frequency: holidays/special occasions only Patient Tobacco Use Status: Never used Tobacco Tobacco use type: Smokeless Tobacco e-Cigarette/Vaping Use: Currently Using Substance Use Type: Marijuana Advance Directives: No Advance Directives Information Provided: No Do you have a plan to hurt others: No Plan service: No Sexual orientation: Straight/Heterosexual Physical Exam ED Vital Signs: Vital Signs - 24 hr 07/08/24 15:13 Temperature 98.9 F Pulse Rate 101 H Respiratory Rate 18 Blood Pressure 115/76 Pulse Oximetry 98 Oxygen Delivery Method Room Air BMI result Body Mass Index 25.8 General appearance comfortable no acute distress The eyes no redness or discharge The sinuses nontender The pharynx is clear without redness swelling or exudate mucous membranes are moist Neck is supple Chest is clear to auscultation full symmetric equal breath sounds Heart no murmur Abdomen soft nontender Pelvic exam is deferred Extremities full range motion x4 Skin no rash Neuro no focal deficits Course Course Course Narrative: This is an RME performed by Daniel Greene CNP: Additional HPI, ROS, PE not included below will be deferred to primary provider. Patient is a 24-year-old female who presents emergency department for evaluation. She had expresses concern about recurrent bacterial vaginosis symptoms, LEs received treatment in April of 2024. Is having dysuria, incomplete would not sensation, white/green vaginal discharge without itch. She does endorse having a headache, cough, and chills as well. Denies concern for sexually transmitted infection stating that she has been abstinent since her most recent BV treatment. Denies concern for . Denies nausea, vomiting, abdominal pain, back pain Plan: Viral serologies, bacterial vaginosis panel, CT/NG, urinalysis Patient with mild cold symptoms for over 3 days tested positive for the flu, out of the window for Tamiflu, symptoms are mild As symptoms are the same as before I am treating patient presumptively with Flagyl for probable bacterial vaginosis As her urine came back showing white cells and nitrates along with her having symptoms of discomfort with urination I started her on Macrobid She is very well-appearing tolerating p.o. 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 Labs: Lab Results 07/08/24 07/08/24 Range/Units 15:21 16:22 Urine Color Dark Yellow Urine Appearance Cloudy Urine pH 6.5 (5.0-9.0) Ur Specific [place] >= 1.030 H (1.005-1.025) Urine Protein 30 (1+) H (Neg-Trace) mg/dL Urine Glucose (UA) Negative (Negative) mg/dL Urine Ketones Trace (Negative) mg/dL Urine Blood Negative (Negative) Urine Nitrite Positive H (Negative) Ur Leukocyte Esterase Small (1+) H (Negative) Influenza Type A (PCR) NEGATIVE (Negative) Influenza Type B (PCR) POSITIVE A (Negative) RSV RNA Qual (PCR) NEGATIVE (Negative) SARS-CoV-2 RNA (RT-PCR) NEGATIVE (Negative) Discharge Plan Discharge Clinical Impression: Vaginal discharge, UTI (urinary tract infection), Influenza Patient Disposition: Home, Self-Care Additional Instructions: We are treating for likely bacterial vaginosis with Flagyl We are treating for likely urinary tract infection with Macrobid antibiotic for 5 days You tested positive for influenza but are out of the window for Tamiflu flu medicines 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 doctor return to the ER any time any worse condition or concerns Prescriptions: New metronidazole 500 mg tablet 500 mg PO BID 7 Days Qty: 14 0RF nitrofurantoin monohyd/m-cryst [Macrobid] 100 mg capsule 100 mg PO Q12H 5 Days Qty: 10 0RF Rx Instructions: must administer with a meal/food No Action nicotine (polacrilex) 4 mg gum 4 mg buccal Q2H 30 Days Qty: 100 0RF metronidazole 500 mg tablet 500 mg PO BID 4 Days Qty: 8 0RF aripiprazole 5 mg tablet 5 mg PO BEDTIME Qty: 30 0RF aripiprazole 2 mg tablet 2 mg PO BEDTIME Qty: 30 0RF trazodone 50 mg Tablet 50 mg PO BEDTIME PRN (Reason: Insomnia) 30 Days Qty: 30 0RF Stand Alone Forms: Work/School Release Print Language: Jordanian
[2024-07-08 16:36] LABS: Appearance Urine Cloudy; Color Urine Dark Yellow; Glucose Urine UA Negative (Negative); Leukocyte Esterase Urine Small (1+) (Negative); Nitrite Urine Positive (Negative); PH 6.5 (5.0-9.0); Specific Gravity - Urine >= 1.030 (1.005-1.025); UMIC TRIGGER UACC YES; Urine Blood Negative (Negative); Urine Ketones Trace mg/dL (Negative); Urine Protein 30 (1+) mg/dL (Neg-Trace)
[2024-07-08 17:00] LABS: Influenza A PCR NEGATIVE (Negative); Influenza B PCR POSITIVE (Negative); Resp Syncy Virus RNA Qual PCR NEGATIVE (Negative); SARS COV2 PCR INHOUSE NEGATIVE (Negative)
[2024-07-08 17:11] LABS: Bacteria Urine 4+ (None Seen); Hyaline Casts Urine 0-2 /LPF (0-2); RBC Urine 0-2 /HPF (0-2); UACC Culture Trigger YES; Urine Pregnancy NEGATIVE (NEGATIVE)
[2024-07-08 17:12] LABS: UPreg QC Valid YES
[2024-07-08 17:26] VITALS: BP 115/76; PULSE 101; RESP 18; TEMP 37.2; O2SAT 98
[2024-07-09 13:17] LABS: Bacterial Vaginosis PCR NEGATIVE (Negative); Candida Group PCR NOT DETECTED (Not Detect); Candida glab krusei PCR NOT DETECTED (Not Detect); Trichomonas vaginalis PCR NOT DETECTED (Not Detect)
[2024-07-09 13:49] LABS: CT PCR DETECTED (Not Detect.); NG PCR NOT DETECTED (Not Detect.)
== END 2024-07-08 17:27 | disposition home or self-care (01) ==
PROVIDERS: Nurse Practitioner Family; Physician Assistant Medical; Emergency Provider Emergency Medicine Emergency Medical Services; PCP Family Medicine
DX: J10.1 Influenza due to other identified influenza virus with other respiratory manifestations (principal); N39.0 Urinary tract infection, site not specified; A74.9 Chlamydial infection, unspecified; N89.8 Other specified noninflammatory disorders of vagina; R30.0 Dysuria; R05.9 Cough, unspecified; R09.89 Other specified symptoms and signs involving the circulatory and respiratory systems; M79.10 Myalgia, unspecified site; Z20.2 Contact with and (suspected) exposure to infections with a predominantly sexual mode of transmission; Z03.818 Encounter for observation for suspected exposure to other biological agents ruled out; Z79.899 Other long term (current) drug therapy
CPT/HCPCS: 0241U; 81001; 81025; 81515; 87086; 87088; 87186; 87491; 87591; 99282; 99283

== ENCOUNTER 2024-08-24 09:52 | Emergency (ER) | payer OTHER, SELFPAY ==
[2024-08-24 09:56] VITALS: BP 110/62; PULSE 82; RESP 20; TEMP 37; O2SAT 98; BMI 26.9
[2024-08-24 10:12] LABS: MANUAL DIFF FLAG NO
[2024-08-24 10:14] LABS: Basophils Percent Auto 0.3 % (0-2); Eosinophils Absolute Auto 0.2 X10*3/uL (0.0-0.4); Hematocrit 38.8 % (37.0-47.0); Hemoglobin 13.2 g/dl (12.0-16.0); Imm Gran Abs Auto 0.02 X10*3/uL (0.00-0.03); Imm Gran Pct Auto 0.3 % (0.0-0.4); Lymphocytes Absolute Auto 1.8 X10*3/uL (1.2-4.9); Lymphocytes Percent Auto 30.9 % (20-40); Mean Corpuscular Hemoglobin 30.7 pg (27.0-33.0); Mean Corpuscular Volume 90.2 fL (80.0-98.0); Mean Platelet Volume 10.1 fL (9.4-12.3); Monocytes Absolute Auto 0.5 X10*3/uL (0.1-1.2); Monocytes Percent Auto 7.6 % (2-11); Neutrophils Absolute Auto 3.4 x10*3/uL (2.0-8.3); Neutrophils Percent Auto 56.9 % (45-73); Platelet Count 193 X10*3/uL (160-400); Red Cell Distribution Width 13.4 % (11.0-16.0)
[2024-08-24 10:21] LABS: Appearance Urine Turbid; Color Urine Dark Yellow; Glucose Urine UA Negative (Negative); Leukocyte Esterase Urine Moderate (2+) (Negative); Nitrite Urine Negative (Negative); PH 5.5 (5.0-9.0); Specific Gravity - Urine >= 1.030 (1.005-1.025); UMIC TRIGGER UACC YES; Urine Blood Negative (Negative); Urine Ketones 15 mg/dL (Negative); Urine Protein 100 (2+) mg/dL (Neg-Trace)
[2024-08-24 10:24] LABS: UPreg QC Valid YES; Urine Pregnancy NEGATIVE (NEGATIVE)
[2024-08-24 10:31] LABS: Anion Gap 10 (12-20); Blood Urea Nitrogen 14 mg/dL (9-16); Carbon Dioxide 27 mmol/L (22-29); Chloride 107 mmol/L (96-108); Creatinine Clr Calc Pharmacy 102.2; Estimated Glomerular Filt Rate > 60; Glucose Random 92 mg/dL (60-115); Potassium 4.3 mmol/L (3.3-5.1); Sodium 140 mmol/L (135-145)
[2024-08-24 10:37] LABS: Bacteria Urine 3+ (None Seen); Hyaline Casts Urine 0-2 /LPF (0-2); RBC Urine 0-2 /HPF (0-2); Squamous Epithelial Cell Urine >20 /HPF (0-2); UACC Culture Trigger YES
[2024-08-24 10:52] LABS: Influenza A PCR NEGATIVE (Negative); Influenza B PCR NEGATIVE (Negative); Resp Syncy Virus RNA Qual PCR NEGATIVE (Negative); SARS COV2 PCR INHOUSE NEGATIVE (Negative)
--- NOTE | 2024-08-24 12:53 | ED.GENADULT ---
HPI - General Adult General Chief complaint: General Medical Stated complaint: stress issues Time Seen by Provider: 08/24/24 12:53 Source: patient Mode of arrival: ambulatory Limitations: no limitations History of Present Illness ED Provider: Dr. Tl Velasco HPI narrative: 24-year-old female who presents emergency department for evaluation of 2 separate chief complaints. Patient states this morning she developed nausea and a headache in the frontal area of her scalp. She states that the headache was a throbbing/ pressure sensation and then moved to her gnosticist parietal areas. she states that she started to see bright stars or peripheral vision and had 1 episode of emesis. She also felt dizzy, lightheaded and had a ringing sensation in both ears. She states that these symptoms resolved. Patient is also complaining of lower abdominal cramping which is a constant pain which is 8/10 at its worst. She also has a vaginal discharge that she describes as abnormal and creamy . She denied fever but did have chills. The patient was seen in the emergency department on 07/08/2024 for flu-like illness and was positive for influenza. The patient was also diagnosed with vaginal discharge most likely bacterial vaginosis and urinary tract infection. The patient was treated that time with metronidazole 500 mg b.i.d. x7 days and nitrofurantoin 100 mg b.i.d. x5 days. The patient's BV, trich and gonorrhea negative but the chlamydia test was positive. A prescription for doxycycline was called in to the pharmacy. The patient believes that she completed all of her antibiotics. Related Data Previous Rx's ?Medication ?Instructions ?Recorded nicotine (polacrilex) 4 mg gum 4 mg buccal Q2H 30 days #100 ea 05/07/24 metronidazole 500 mg tablet 500 mg PO BID 4 days #8 tabs 06/18/24 aripiprazole 2 mg tablet 2 mg PO BEDTIME as directed #30 06/28/24 tabs aripiprazole 5 mg tablet 5 mg PO BEDTIME as directed #30 06/28/24 tabs trazodone 50 mg tablet 50 mg PO BEDTIME PRN Insomnia 06/28/24 days #30 tabs metronidazole 500 mg tablet 500 mg PO BID 7 days #14 tabs 07/08/24 nitrofurantoin 100 mg PO Q12H 5 days #10 caps 02/23/25 monohydrate/macrocrystals 100 mg capsule (Macrobid) doxycycline monohydrate 100 mg 100 mg PO BID 7 days #14 tabs 07/11/24 tablet [id number]-ciilqtubbsmhh-cdfwumjw 250 2 tab PO Q6H PRN Migraine 08/24/24 mg-250 mg-65 mg tablet (Excedrin headaches #20 tabs Migraine) doxycycline hyclate 100 mg tablet 100 mg PO Q12H 14 days #28 tabs 08/24/24 metronidazole 500 mg tablet 500 mg PO BID 14 days #28 tabs 08/24/24 Allergies Allergy/AdvReac Type Severity Reaction Status Date / Time latex Allergy Rash Verified 08/24/24 09:59 Review of Systems Review of Systems: Yes all other systems are reviewed and are negative [facility] Past Medical History Medical History (Updated 08/25/24 @ 00:00 by Lanny Nguyen) Loss of consciousness PTSD (post-traumatic stress disorder) Social History Social History Household Members: None Housing: Apartment Do you presently have visiting nurse or other home services: No Alcohol intake: current Alcohol intake frequency: holidays/special occasions only Patient Tobacco Use Status: Never used Tobacco Tobacco use type: Smokeless Tobacco Smoked in Last 30 Days: No e-Cigarette/Vaping Use: Currently Using Use of substances other than those prescribed or required for medical reasons: No Substance Use Type: Marijuana Advance Directives: No Advance Directives Information Provided: Yes Patient : No service: No Sexual orientation: Straight/Heterosexual Physical Exam ED Vital Signs: Vital Signs - 24 hr 08/24/24 09:56 08/24/24 13:49 08/24/24 14:24 Temperature 98.6 F 98.5 F 98.5 F Pulse Rate 82 69 69 Respiratory Rate 20 19 18 Blood Pressure 110/62 90/64 90/64 Pulse Oximetry 98 99 98 Oxygen Delivery Method Room Air Room Air Room Air BMI result Body Mass Index 26.9 Vital signs were normal Exam: General: Awake, alert in no distress Head: Normocephalic, atraumatic EENT: PERRL, Lids normal, sclera normal, conjunctiva normal, nose normal , ears normal, throat without erythema or exudates Neck: Supple, no adenopathy Lung: breath sounds symmetric, no wheezing, rales or rhonchi Chest: symmetric movement, nontender Heart: regular rate and rhythm, normal S1, S2 no murmurs or rubs Abdomen: soft, moderate suprapubic tenderness and moderate bilateral lower pelvic tenderness, nondistended, normal bowel sounds Back: no vertebral tenderness, no CVAT Extremities: no deformities, moves all extremities symmetrically Neuro: Awake, alert, oriented, normal speech, cranial nerves intact, moves all extremities symmetrically Psych: Pleasant, cooperative Medications Administered Discontinued Medications Generic Name Dose Route Start Last Admin Trade Name Ricky PRN Reason Stop Dose Admin Ceftriaxone Sodium 500 mg/ 0 mg 08/24/24 13:15 08/24/24 13:47 Lidocaine HCl 1 ml IM 08/24/24 13:16 500 kit ONCE ONE Administration Doxycycline Monohydrate 100 mg 08/24/24 13:15 08/24/24 13:46 Doxycycline Monohydrate 100 Mg Capsule PO 08/24/24 13:16 100 mg ONCE ONE Administration Metronidazole 500 mg 08/24/24 13:15 08/24/24 13:46 Metronidazole 500 Mg Tablet PO 08/24/24 13:16 500 mg ONCE ONE Administration Medical Decision Making Medical Decision Making [facility] Narrative: 24-year-old female who presents emergency department for evaluation of 2 separate chief complaints; headache and lower abdominal pain with abnormal vaginal discharge. The patient's headache was associated with nausea, vomiting, scotoma and resolved without any treatment. Patient's abdominal complaint consisted of lower abdominal pain with an abnormal creamy vaginal discharge. the patient was seen in the emergency department on 07/08/2024 and had a positive influenza test and was also positive for chlamydia and UTI which grew E coli. She was treated with metronidazole 500 mg b.i.d. x7 days, nitro phenytoin 100 mg b.i.d. x5 days and a prescription for doxycycline was phoned in to her pharmacy. She reports she finished all of her antibiotics. Vital signs were normal. Physical examination did reveal lower moderate abdominal tenderness. Differential diagnosis: Includes but is not limited to : Headache: Migraine syndrome, nonspecific headache Abdominal pain: STD, PID, urinary tract infection Course: My independent interpretation patient's laboratory evaluation is as follows: CBC and BMP were normal. Urine test was negative. Urinalysis revealed a concentrated urine, 2+ protein, negative nitrates, 2+ leukocyte esterase. Microscopic revealed 0-2 RBCs, 6-10 WBCs, greater than 20 squamous cells, 3+ bacteria. This is a contaminated specimen. The patient's headache is most likely cause by migraine syndrome I did discuss this with the patient. The patient's lower abdominal pain and vaginal discharge is concerning for possible pelvic inflammatory disease most likely secondary to fell treatment of her 1st STD. The patient was treated with ceftriaxone with lidocaine 500 mg IM, doxycycline 100 mg orally and metronidazole 500 mg orally. She was given prescriptions for doxycycline 100 mg b.i.d. times 14 days and metronidazole 500 mg b.i.d. for 14 days. She was also prescribed ibuprofen 400 mg 3 times a day as needed for pain. She was referred to our occupational therapist home based group for re-evaluation make sure that her infection is resolved. He was given printed and verbal instructions discharged home. Admission/Observation Consideration of admission/observation: Escalation of care including admission/observation considered (Yes) Lab Data 08/24/24 10:07 08/24/24 10:07 Labs: Lab Results 08/24/24 08/24/24 Range/Units 10:07 10:14 WBC 6.0 (4.8-10.8) X10*3/uL RBC 4.30 (4.20-5.50) X10*6/uL Hgb 13.2 (12.0-16.0) g/dl Hct 38.8 (37.0-47.0) % MCV 90.2 (80.0-98.0) fL MCH 30.7 (27.0-33.0) pg MCHC 34.0 (31.0-35.0) g/dl RDW 13.4 (11.0-16.0) % Plt Count 193 (160-400) X10*3/uL MPV 10.1 (9.4-12.3) fL Immature Gran % (Auto) 0.3 (0.0-0.4) % Neut % (Auto) 56.9 (45-73) % Lymph % (Auto) 30.9 (20-40) % Rhea % (Auto) 7.6 (2-11) % Eos % (Auto) 4.0 (0-4) % Baso % (Auto) 0.3 (0-2) % Lymph # (Auto) 1.8 (1.2-4.9) X10*3/uL Rhea # (Auto) 0.5 (0.1-1.2) X10*3/uL Eos # (Auto) 0.2 (0.0-0.4) X10*3/uL Baso # (Auto) 0.0 (0.0-0.2) X10*3/uL Abs Immat Gran (auto) 0.02 (0.00-0.03) X10*3/uL Absolute Neuts (auto) 3.4 (2.0-8.3) x10*3/uL Absolute Nucleated RBC 0.000 (0.0-0.012) X10*3/uL Nucleated RBC % (auto) 0.0 (0.0-0.2) /100WBC Sodium 140 (135-145) mmol/L Potassium 4.3 (3.3-5.1) mmol/L Chloride 107 (96-108) mmol/L Carbon Dioxide 27 (22-29) mmol/L Anion Gap 10 L (12-20) BUN 14 (9-16) mg/dL Creatinine 0.79 (0.5-1.4) mg/dL Estim Creat Clear Calc 102.2 Estimated GFR > 60 Random Glucose 92 (60-115) mg/dL Calcium 9.0 (8.4-10.2) mg/dL Urine Color Dark Yellow Urine Appearance Turbid Urine pH 5.5 (5.0-9.0) Ur Specific [place] >= 1.030 H (1.005-1.025) Urine Protein 100 (2+) H (Neg-Trace) mg/dL Urine Glucose (UA) Negative (Negative) mg/dL Urine Ketones 15 (Negative) mg/dL Urine Blood Negative (Negative) Urine Nitrite Negative (Negative) Ur Leukocyte Esterase Moderate (2+) H (Negative) Urine RBC 0-2 (0-2) /HPF Urine WBC 6-10 (0-5) /HPF Ur Squamous Epith Cells >20 (0-2) /HPF Urine Bacteria 3+ (None Seen) Hyaline Casts 0-2 (0-2) /LPF Urine Test NEGATIVE (NEGATIVE) Influenza Type A (PCR) NEGATIVE (Negative) Influenza Type B (PCR) NEGATIVE (Negative) RSV RNA Qual (PCR) NEGATIVE (Negative) SARS-CoV-2 RNA (RT-PCR) NEGATIVE (Negative) Prescription Management I considered prescription management with: Pain Medication ( ibuprofen) and Antibiotic doxycycline and metronidazole Discharge Plan Discharge Clinical Impression: Acute PID (pelvic inflammatory disease), Migraine Patient Disposition: Home, Self-Care Additional Instructions: From your previous you did test positive for chlamydial infection and E coli urinary infection. Your UTI infection was treated with oral nitrophenytoin. We suspect that your chlamydial infection was not completely treated and now have pelvic inflammatory disease. Follow the instructions below Pelvic inflammatory disease instructions: Your presentation and physical findings are consistent with pelvic inflammatory disease (PID). Approximately 30% of the time, pelvic inflammatory disease is caused by sexually transmitted diseases such as Trichomonas, gonorrhea or chlamydia. Approximately 70% of the time, pelvic inflammatory disease is caused by abnormal bacteria (anaerobic bacteria) in your vagina that can cause an infection ? Medications You received ceftriaxone 500 mg intramuscularly here in the emergency department Take doxycycline 100 mg, 1 pill twice a day for 14 days. Take metronidazole 500 mg, 1 pill twice a day for 14 days. These 3 antibiotics treat sexually transmitted diseases such as gonorrhea, chlamydia and Trichomonas as well as anaerobic bacteria that can cause pelvic inflammatory disease. Take ibuprofen 400 mg pills, 1 pills every 6 hours as needed for pain. Follow-Up Follow-up with your gynecology in ?10-14 days. Return precautions: Please return to the emergency department if your symptoms get worse if your pain does not go away in 24-48 hours or if you develop any symptoms that are concerning to you. Prescriptions: New metronidazole 500 mg tablet 500 mg PO BID 14 Days Qty: 28 0RF doxycycline hyclate 100 mg tablet 100 mg PO Q12H 14 Days Qty: 28 0RF Excedrin Migraine 250-250-65 mg tablet 2 tab PO Q6H PRN (Reason: Migraine headaches) Qty: 20 0RF No Action metronidazole 500 mg tablet 500 mg PO BID 7 Days Qty: 14 0RF nitrofurantoin monohyd/m-cryst [Macrobid] 100 mg capsule 100 mg PO Q12H 5 Days Qty: 10 0RF Rx Instructions: must administer with a meal/food doxycycline monohydrate 100 mg tablet 100 mg PO BID 7 Days Qty: 14 0RF nicotine (polacrilex) 4 mg gum 4 mg buccal Q2H 30 Days Qty: 100 0RF metronidazole 500 mg tablet 500 mg PO BID 4 Days Qty: 8 0RF aripiprazole 5 mg tablet 5 mg PO BEDTIME Qty: 30 0RF aripiprazole 2 mg tablet 2 mg PO BEDTIME Qty: 30 0RF trazodone 50 mg Tablet 50 mg PO BEDTIME PRN (Reason: Insomnia) 30 Days Qty: 30 0RF Interventions: ED Discharge Assessment Last Done: 08/24/24 14:24 Discharge Date/Time: 08/24/24 14:26 Print Language: Italian
[2024-08-24] MEDS: metroNIDAZOLE 500 MG TABLET PO (13:46)
[2024-08-24] MEDS: Doxycycline Monohydrate 100 MG CAPSULE PO (13:46)
[2024-08-24] MEDS: cefTRIAXone sodium 500 MG, Lidocaine HCl 1 % MPF 1 ML IM (13:47)
[2024-08-24 13:49] VITALS: BP 90/64; PULSE 69; RESP 19; TEMP 36.9; O2SAT 99
[2024-08-24 14:24] VITALS: BP 90/64; PULSE 69; RESP 18; TEMP 36.9; O2SAT 98
== END 2024-08-24 14:26 | disposition home or self-care (01) ==
PROVIDERS: Emergency Provider Emergency Medicine Emergency Medical Services; PCP Family Medicine
DX: N73.9 Female pelvic inflammatory disease, unspecified (principal); G43.909 Migraine, unspecified, not intractable, without status migrainosus; R11.0 Nausea; R42 Dizziness and giddiness; Z03.818 Encounter for observation for suspected exposure to other biological agents ruled out; Z79.899 Other long term (current) drug therapy
CPT/HCPCS: 0241U; 36415; 80048; 81001; 81025; 85025; 87086; 96372; 99284; J0696; J2003

== ENCOUNTER 2024-10-21 21:46 | Emergency (ER) | payer OTHER, SELFPAY ==
[2024-10-21 21:49] VITALS: BP 107/63; PULSE 92; RESP 18; TEMP 36.9; O2SAT 96; BMI 26.6
[2024-10-21 22:20] LABS: IDNOW Serial# 6674DD1D; Strep A Nucleic Acid Negative (Negative)
[2024-10-21 22:44] LABS: Influenza A PCR NEGATIVE (Negative); Influenza B PCR NEGATIVE (Negative); Resp Syncy Virus RNA Qual PCR NEGATIVE (Negative); SARS COV2 PCR INHOUSE NEGATIVE (Negative)
[2024-10-21 22:46] VITALS: BP 112/63; PULSE 80; RESP 20; TEMP 36.8; O2SAT 97
--- OUTSIDE RECORDS SUMMARY | 2024-10-21 22:53 | XMS_ITS ---
Author Organization [facility] Address [address] [place] [phone] Care Team Providers Care Chief [employer] Name Role Phone MILADY DE JESUS Unavailable [phone] REASON FOR VISIT Counseling/Testing Social History Sex Assigned At : Social History Observation Description Sex Assigned At Female Encounters Encounter Location Date Provider Diagnosis [facility] [address] [place], [place] [id number] MILADY DE JESUS Plan Of Treatment No Information Progress Notes * Nick KENDRICKeDOB:2000 ( 24 yo F)Acc No.[id number]:06/13/2024 Progress Notes Patient:?Nick KENDRICKe Provider:SATISH DE JESUS :2000???Age:24 Y???Sex:Female D ate:06/13/2024 Address:[address] [place], [place] [id number] Subjective: * Chief Complaints: * ???1. Counseling/Testing. * Medical History:? Objective: * Vitals:? Assessment: Plan: * Treatment: * Billing Information: * Visit Code:? * Procedure Codes:? * Electronic signature of LEENA DE JESUS CNM on 10/21/2024 at 10:52 PM EDT Sign off status: Pending * Provider:SATISH DE JESUS Date:?06/13/2024 Generated for Dougie cummins/Trae/eTransmitting on:?10/21/2024 10:52 PM EDT
--- NOTE | 2024-10-22 00:04 | ED.URI ---
HPI - URI/Sore Throat General Chief Complaint: Upper Respiratory Symptoms Stated Complaint: flu like symptoms Time Seen by Provider: 10/21/24 23:19 Source: patient Mode of arrival: ambulatory Limitations: no limitations History of Present Illness ED Provider: HPI Narrative: Patient complaining of sore throat cough congestion attributed abdominal pain for last 1 week vomiting after cough no diarrhea no fever no chills Related Data Previous Rx's ?Medication ?Instructions ?Recorded nicotine (polacrilex) 4 mg gum 4 mg buccal Q2H 30 days #100 ea 05/07/24 metronidazole 500 mg tablet 500 mg PO BID 4 days #8 tabs 06/18/24 aripiprazole 2 mg tablet 2 mg PO BEDTIME as directed #30 06/28/24 tabs aripiprazole 5 mg tablet 5 mg PO BEDTIME as directed #30 06/28/24 tabs trazodone 50 mg tablet 50 mg PO BEDTIME PRN Insomnia 30 06/28/24 days #30 tabs metronidazole 500 mg tablet 500 mg PO BID 7 days #14 tabs 07/08/24 nitrofurantoin 100 mg PO Q12H 5 days #10 caps 07/08/24 monohydrate/macrocrystals 100 mg capsule (Macrobid) doxycycline monohydrate 100 mg 100 mg PO BID 7 days #14 tabs 07/11/24 tablet uknpmlj-zajzvovxcayvo-hgscftig 250 2 tab PO Q6H PRN Migraine 08/24/24 mg-250 mg-65 mg tablet (Excedrin headaches #20 tabs Migraine) doxycycline hyclate 100 mg tablet 100 mg PO Q12H 14 days #28 tabs 08/24/24 metronidazole 500 mg tablet 500 mg PO BID 14 days #28 tabs 08/24/24 albuterol sulfate 90 mcg/actuation 2 puff inhalation Q6H PRN 10/22/24 aerosol inhaler shortness of breath or wheezing #8.5 grams amoxicillin 875 mg-potassium 1 tab PO BID #20 tabs 10/22/24 clavulanate 125 mg tablet prednisone 20 mg tablet 40 mg (2 x 20 mg) PO DAILY #10 tabs 10/22/24 Allergies Allergy/AdvReac Type Severity Reaction Status Date / Time latex Allergy Rash Verified 10/21/24 21:52 Review of Systems Review of Systems: Yes all other systems are reviewed and are negative PMFSH Past Medical History Medical History Loss of consciousness PTSD (post-traumatic stress disorder) Social History Social History Household Members: None Housing: Apartment Do you presently have visiting nurse or other home services: No Alcohol intake: current Alcohol intake frequency: holidays/special occasions only Patient Tobacco Use Status: Never used Tobacco Tobacco use type: Smokeless Tobacco e-Cigarette/Vaping Use: Currently Using Substance Use Type: Marijuana Advance Directives: No Advance Directives Information Provided: Yes service: No Sexual orientation: Straight/Heterosexual Physical Exam Vital Signs: Vital Signs: Last Vital Signs Temp 98.2 F 10/22/24 00:35 Pulse 80 10/22/24 00:35 Resp 20 10/22/24 00:35 BP 112/63 10/22/24 00:35 Pulse Ox 97 10/22/24 00:35 O2 Del Method Room Air 10/22/24 00:35 BMI result Body Mass Index 26.6 Appearance: Alert. Oriented X3. No acute distress. Eyes: no pallor or icterus ENT: Pharynx normal Oral Mucosa moist tympanic membrane intact no erythema, Neck: Normal inspection. Neck supple. CVS: Normal heart rate and rhythm. Pulses normal. Respiratory: No respiratory distress. Equal air entry bilateral, no wheezing/rales/rhonchi bilateral prolonged expiration Abd: soft, not tender Skin: Skin warm and dry. Normal skin color. Normal skin turgor. Extremities: No lower extremity edema, no calf tenderness Neuro: Oriented X 3. Medications Administered Discontinued Medications Generic Name Dose Route Start Last Admin Trade Name Freq PRN Reason Stop Dose Admin Albuterol Sulfate 4 puff 10/22/24 00:04 10/22/24 00:15 Albuterol Sulfate 90 Mcg 8 Gm Inhaler INHALE 10/22/24 00:05 4 puff ONCE ONE Administration Amoxicillin/Clavulanate Potassium 875 mg 10/22/24 00:04 10/22/24 00:15 Amoxicillin/Potassium Clav 875 Mg Tablet PO 10/22/24 00:05 875 mg ONCE ONE Administration Prednisone 40 mg 10/22/24 00:04 10/22/24 00:15 Prednisone 20 Mg Tablet PO 10/22/24 00:05 40 mg ONCE ONE Administration Medical Decision Making Lab Data [facility] Lab Attestation statement: I reviewed the patient's lab results. Labs: Lab Results 10/21/24 Range/Units 21:58 Influenza Type A (PCR) NEGATIVE (Negative) Influenza Type B (PCR) NEGATIVE (Negative) RSV RNA Qual (PCR) NEGATIVE (Negative) SARS-CoV-2 RNA (RT-PCR) NEGATIVE (Negative) S. pyogenes GrpA ANGELICA Negative (Negative) Discharge Plan Discharge Clinical Impression: Acute bronchitis Patient Disposition: Home, Self-Care Instructions: Acute Bronchitis (ED) Additional Instructions: Use inhaler as prescribed Prednisone and antibiotics as prescribed Follow up with your PCP if not better Prescriptions: New prednisone 20 mg tablet 40 mg PO DAILY Qty: 10 0RF albuterol sulfate 90 mcg/actuation HFA aerosol inhaler 2 puff inhalation Q6H PRN (Reason: shortness of breath or wheezing) Qty: 8.5 0RF amoxicillin-pot clavulanate 875-125 mg tablet 1 tab PO BID Qty: 20 0RF No Action metronidazole 500 mg tablet 500 mg PO BID 7 Days Qty: 14 0RF nitrofurantoin monohyd/m-cryst [Macrobid] 100 mg capsule 100 mg PO Q12H 5 Days Qty: 10 0RF Rx Instructions: must administer with a meal/food doxycycline monohydrate 100 mg tablet 100 mg PO BID 7 Days Qty: 14 0RF nicotine (polacrilex) 4 mg gum 4 mg buccal Q2H 30 Days Qty: 100 0RF metronidazole 500 mg tablet 500 mg PO BID 4 Days Qty: 8 0RF aripiprazole 5 mg tablet 5 mg PO BEDTIME Qty: 30 0RF aripiprazole 2 mg tablet 2 mg PO BEDTIME Qty: 30 0RF trazodone 50 mg Tablet 50 mg PO BEDTIME PRN (Reason: Insomnia) 30 Days Qty: 30 0RF metronidazole 500 mg tablet 500 mg PO BID 14 Days Qty: 28 0RF doxycycline hyclate 100 mg tablet 100 mg PO Q12H 14 Days Qty: 28 0RF Excedrin Migraine 250-250-65 mg tablet 2 tab PO Q6H PRN (Reason: Migraine headaches) Qty: 20 0RF Stand Alone Forms: Work/School Release Interventions: ED Discharge Assessment Last Done: 10/22/24 00:35 Discharge Date/Time: 10/22/24 00:35 Print Language: Ivorian
[2024-10-22] MEDS: Albuterol Sulfate 90 MCG 8 GM INHALER 4 PUFF INHALE (00:15)
[2024-10-22] MEDS: Amoxicillin/Potassium Clav 875 MG TABLET PO (00:15)
[2024-10-22] MEDS: predniSONE 20 MG TABLET 40 MG PO (00:15)
[2024-10-22 00:35] VITALS: BP 112/63; PULSE 80; RESP 20; TEMP 36.8; O2SAT 97
== END 2024-10-22 00:35 | disposition home or self-care (01) ==
PROVIDERS: Emergency Provider Internal Medicine; PCP Family Medicine
DX: J20.9 Acute bronchitis, unspecified (principal); J02.9 Acute pharyngitis, unspecified; R05.9 Cough, unspecified; Z03.818 Encounter for observation for suspected exposure to other biological agents ruled out
CPT/HCPCS: 0241U; 87651; 99282; 99284

== ENCOUNTER 2025-02-12 12:47 | Emergency (ER) | payer OTHER, SELFPAY ==
--- OUTSIDE RECORDS SUMMARY | 2024-06-13 06:45 | XMS_ITS ---
Author Organization [facility] Address [address] [place] [phone] Care Team Providers Care Platform Builder Name Role Phone MILADY DE JESUS Unavailable [phone] REASON FOR VISIT Counseling/Testing Social History Sex Assigned At : Social History Observation Description Sex Assigned At Female Encounters Encounter Location Date Provider Diagnosis [facility] [address] [place], [place] [id number] MILADY DE JESUS Plan Of Treatment No Information Progress Notes * Pepe KENDRICKOB:2000 ( 25 yo F)Acc No.[id number]:06/13/2024 Progress Notes Patient: Mary Gilmore Provider: Emma DE JESUS :2000 A ge:24 Y S ex:Female Date:06/13/2024 Address:[address] [id number] Subjective: * Chief Complaints: * C ounseling/Testing * Electronic signature of LEENA DE JESUS CNM on 02/12/2025 at 02:41 PM EDT Sign off status: Pending * Provider: Emma DE JESUS Date: 0 06/13/2024 Generated for Dougie cummins/Trae/eTrandaily on: 0 02/12/2025 02:41 PM EDT
--- NOTE | ~2025-02-12 | XR_ITS ---
EXAMINATION: XR CHEST CLINICAL INFORMATION: cough COMPARISON: None available. TECHNIQUE: 2 views of the chest were obtained. FINDINGS: Lungs are clear and well aerated. Heart size is within normal limits. There is no pleural effusion. XR/XR chest 2V IMPRESSION: No acute disease. Electronically signed by: Abdulkadir Ham MD 02/12/2025 01:12 PM EDT RP
[2025-02-12 12:51] VITALS: BP 116/81; PULSE 79; RESP 18; TEMP 36.6; O2SAT 100; BMI 29.2
--- NOTE | 2025-02-12 12:52 | ED_ITS ---
HPI - General Adult General Chief complaint: Upper Respiratory Symptoms Stated complaint: cold symptoms, coughing blood this morning Related Data Previous Rx's ?Medication ?Instructions ?Recorded nicotine (polacrilex) 4 mg gum 4 mg buccal Q2H 30 days #100 ea 05/07/24 metronidazole 500 mg tablet 500 mg PO BID 4 days #8 ta bs 06/18/24 aripiprazole 2 mg tablet 2 mg PO BEDTIME as directed #30 06/28/24 tabs aripiprazole 5 mg tablet 5 mg PO BEDTIME as directed #30 06/28/24 tabs trazodone 50 mg tablet 50 mg PO BEDTIME PRN Insomni a 30 06/28/24 days #30 tabs metronidazole 500 mg tablet 500 mg PO BID 7 days #14 t abs 07/08/24 nitrofurantoin 100 mg PO Q12H 5 days #10 ca ps 07/08/24 monohydrate/macrocrystals 100 mg capsule (Macrobid) doxycycline monohydrate 100 mg 100 mg PO BID 7 days #1 4 tabs 07/11/24 tablet snjlxaq-zlpulxrhomjeu-gkfxuvfk 250 2 tab PO Q6H PRN Mi graine 08/24/24 mg-250 mg-65 mg tablet (Excedrin headaches #20 tabs Migraine) doxycycline hyclate 100 mg tablet 100 mg PO Q12H 14 da ys #28 tabs 08/24/24 metronidazole 500 mg tablet 500 mg PO BID 14 days #28 tabs 08/24/24 albuterol sulfate 90 mcg/actuation 2 puff inhalation Q 6H PRN 10/22/24 aerosol inhaler shortness of breath or wheez ing #8.5 grams amoxicillin 875 mg-potassium 1 tab PO BID #20 tabs 02/07 clavulanate 125 mg tablet prednisone 20 mg tablet 40 mg (2 x 20 mg) PO DAILY # 10 tabs 10/22/24 Allergies Allergy/AdvReac Type Severity Reaction Status Date / Time latex Allergy Rash Verified 02/12/25 12:53 [facility] Past Medical History Medical History Loss of consciousness PTSD (post-traumatic stress disorder) Social History Social History Household Members: None Housing: Apartment Do you presently have visiting nurse or other home services: No Alcohol intake: current Alcohol intake frequency: holidays/special occasions only Patient Tobacco Use Status: Never used Tobacco Tobacco use type: Smokeless Tobacco e-Cigarette/Vaping Use: Currently Using Substance Use Type: Marijuana Advance Directives: No Advance Directives Information Provided: Yes service: No Sexual orientation: Straight/Heterosexual Physical Exam ED Vital Signs: BMI result Body Mass Index 29.2 Course Course Course Narrative: This is an RME: Additional HPI, ROS, PE not included below will be deferred to primary provider. RME assessment and note performed by: Sunshine Hinson PA-C This is a 72-lemj-lds-female who presents to the ER with complaints of ongoing cough, shortness of breath, and multiple episodes of hemoptysis today. Patient reports that she has been sick for the last 2 weeks. She has been seen at an urgent care, tested negative for COVID, flu, and also had a chest x-ray which is negative for pneumonia. She completed a course of amoxicillin, is currently on prednisone, and was given an inhaler, continues to have symptoms and does not feel as though her symptoms are improving. Concern due to bloody sputum this morning. Inspiratory wheezes noted throughout all lung morel. Plan: Labs, EKG, Cxr Reevaluation(s) Reevaluation #1: Patient left without completing treatment. Medical Decision Making Lab Data 02/12/25 13:42 02/12/25 13:42 Labs: Lab Results 02/12/25 Range/Units 13:42 WBC 7.2 (4.8-10.8) X10*3/uL RBC 4.34 (4.20-5.50) X10*6/uL Hgb 13.2 (12.0-16.0) g/dl Hct 39.7 (37.0-47.0) % MCV 91.5 (80.0-98.0) fL MCH 30.4 (27.0-33.0) pg MCHC 33.2 (31.0-35.0) g/dl RDW 13.3 (11.0-16.0) % Plt Count 183 (160-400) X10*3/uL MPV 10.5 (9.4-12.3) fL Immature Gran % (Auto) 0.3 (0.0-0.4) % Neut % (Auto) 45.9 (45-73) % Lymph % (Auto) 38.0 (20-40) % Gentry % (Auto) 8.8 (2-11) % Eos % (Auto) 6.7 H (0-4) % Baso % (Auto) 0.3 (0-2) % Lymph # (Auto) 2.7 (1.2-4.9) X10*3/uL Gentry # (Auto) 0.6 (0.1-1.2) X10*3/uL Eos # (Auto) 0.5 H (0.0-0.4) X10*3/uL Baso # (Auto) 0.0 (0.0-0.2) X10*3/uL Abs Immat Gran (auto) 0.02 (0.00-0.03) X10*3/uL Absolute Neuts (auto) 3.3 (2.0-8.3) x10*3/uL Absolute Nucleated RBC 0.000 (0.0-0.012) X10*3/uL Nucleated RBC % (auto) 0.0 (0.0-0.2) /100WBC Sodium 141 (135-145) mmol/L Potassium 4.2 (3.3-5.1) mmol/L Chloride 108 (96-108) mmol/L Carbon Dioxide 27 (22-29) mmol/L Anion Gap 10 L (12-20) BUN 17 H (9-16) mg/dL Creatinine 0.67 (0.5-1.4) mg/dL Estim Creat Clear Calc 124.4 Estimated GFR > 60 Random Glucose 89 (60-115) mg/dL Calcium 9.1 (8.4-10.2) mg/dL Magnesium 2.2 (1.6-2.6) mg/dL Total Bilirubin 0.2 (0.0-1.0) mg/dL Direct Bilirubin < 0.2 (0.0-0.5) mg/dL AST 20 (5-31) U/L ALT 24 (0-31) U/L Alkaline Phosphatase 52 (39-117) U/L Total Protein 7.0 (6.5-8.0) g/dL Albumin 4.5 (3.5-5.0) g/dL Beta HCG, Quant < 2 mIU/mL COVID-19 (MEG) Negative (Negative) COVID-19 Clin Com See Note Influenza Type A (ANGELICA) Negative (Negative) Influenza Type B (ANGELICA) Negative (Negative) Influenza A & B Note See Note S. pyogenes GrpA ANGELICA Negative (Negative) Discharge Plan Discharge Clinical Impression: Cough Patient Disposition: Left W/O Completing Treatment Prescriptions: No Action metronidazole 500 mg tablet 500 mg PO BID 7 Days Qty: 14 0RF nitrofurantoin monohyd/m-cryst [Macrobid] 100 mg capsule 100 mg PO Q12H 5 Days Qty: 10 0RF Rx Instructions: must administer with a meal/food doxycycline monohydrate 100 mg tablet 100 mg PO BID 7 Days Qty: 14 0RF prednisone 20 mg tablet 40 mg PO DAILY Qty: 10 0RF albuterol sulfate 90 mcg/actuation HFA aerosol inhaler 2 puff inhalation Q6H PRN (Reason: shortness of breath or wheezing) Qty: 8.5 0RF amoxicillin-pot clavulanate 875-125 mg tablet 1 tab PO BID Qty: 20 0RF nicotine (polacrilex) 4 mg gum 4 mg buccal Q2H 30 Days Qty: 100 0RF metronidazole 500 mg tablet 500 mg PO BID 4 Days Qty: 8 0RF aripiprazole 5 mg tablet 5 mg PO BEDTIME Qty: 30 0RF aripiprazole 2 mg tablet 2 mg PO BEDTIME Qty: 30 0RF trazodone 50 mg Tablet 50 mg PO BEDTIME PRN (Reason: Insomnia) 30 Days Qty: 30 0RF metronidazole 500 mg tablet 500 mg PO BID 14 Days Qty: 28 0RF doxycycline hyclate 100 mg tablet 100 mg PO Q12H 14 Days Qty: 28 0RF Excedrin Migraine 250-250-65 mg tablet 2 tab PO Q6H PRN (Reason: Migraine headaches) Qty: 20 0RF Discharge Date/Time: 02/12/25 18:24
[2025-02-12 13:47] LABS: MANUAL DIFF FLAG NO
[2025-02-12 13:48] LABS: Hematocrit 39.7 % (37.0-47.0); Hemoglobin 13.2 g/dl (12.0-16.0); Imm Gran Abs Auto 0.02 X10*3/uL (0.00-0.03); Imm Gran Pct Auto 0.3 % (0.0-0.4); Lymphocytes Absolute Auto 2.7 X10*3/uL (1.2-4.9); Mean Corpuscular HGB Conc 33.2 g/dl (31.0-35.0); Mean Corpuscular Hemoglobin 30.4 pg (27.0-33.0); Mean Corpuscular Volume 91.5 fL (80.0-98.0); NRBC Abs Auto 0.000 X10*3/uL (0.0-0.012); NRBC Pct Auto 0.0 /100WBC (0.0-0.2); Platelet Count 183 X10*3/uL (160-400); Red Blood Count 4.34 X10*6/uL (4.20-5.50); White Blood Count 7.2 X10*3/uL (4.8-10.8)
[2025-02-12 14:08] LABS: Alanine Aminotransferase 24 U/L (0-31); Albumin Level 4.5 g/dL (3.5-5.0); Alkaline Phosphatase 52 U/L (39-117); Anion Gap 10 (12-20); Aspartate Amino Transferase 20 U/L (5-31); Blood Urea Nitrogen 17 mg/dL (9-16); Calcium 9.1 mg/dL (8.4-10.2); Carbon Dioxide 27 mmol/L (22-29); Chloride 108 mmol/L (96-108); Creatinine Clr Calc Pharmacy 124.4; Estimated Glomerular Filt Rate > 60; Magnesium 2.2 mg/dL (1.6-2.6); Potassium 4.2 mmol/L (3.3-5.1); Sodium 141 mmol/L (135-145); Total Protein 7.0 g/dL (6.5-8.0)
[2025-02-12 14:12] LABS: COVID-19 Test Negative (Negative); IDNOW Serial# 55D5AD1C; IDNOW Serial# 58CA691E; Strep A Nucleic Acid Negative (Negative)
[2025-02-12 14:33] LABS: IDNOW Serial# 58CA691E; Influenza B2 Negative (Negative)
--- OUTSIDE RECORDS SUMMARY | 2025-02-12 14:42 | XMS_ITS | Patient Health Record ---
Author Organization [facility] Address [address] [id number] Care Team Providers Care Hand Touch Up Painter Name Role Phone LARRY XIONG Unavailable [phone] MILADY DE JESUS Unavailable [phone] Results Component Value Reference Range Notes Test, Urine Reviewed date:10/04/2024 02:20:18 PM Interpretation:Positive Performing Lab: Notes/Report: Positive Test, Urine POSITIVE Lot # [id number] Exp. Date [id number] Chlamydia/GC Amplification-1 [id number] Reviewed date:10/06/2024 10:49:12 AM Interpretation:Negative Performing Lab:[facility], [address], [address], [place], Phone - [phone], Director - [facility] Notes/Report: Clinical Information:SRC:urine Chlamydia trachomatis, MEG Negative Negative Neisseria gonorrhoeae, MEG Negative Negative Reason For Referral No Information Social History Sex Assigned At : Social History Observation Description Sex Assigned At Female Social History HIV Risk Assessment Social Info Question Answer Notes Additional Questions Is an HIV Risk Assessment being c onducted? Yes Have you been tested for HIV before? Yes Did you have a blood transfusion prior to 1985? No Do you have an unlicensed body piercing or tattoo? No Reproductive Life Plan: Social Info Question Answer Notes Reproductive Life Plan: Do you want to h ave children? Yes, I want to have children How long would you like to wait until you/your partner becomes ? not sure How sure are you that you will be able to use your control method without any problems? Not sure Human Trafficking: Social Info Question Answer Notes Human Trafficking Experienced: No Sexual History: Social Info Question Answer Notes Sexual History: Sexual History Reviewed: Partner s, Practices, Protection/Past STIs, Prevention of Currently sexually active? Yes Sexually active with: Men Number of male partners 1 Your sexual activities include: oral intercourse, vaginal intercourse Do you use condoms? Yes Number of partners in past 3 months: 1 Number of partners in past year: 3 What is the client's primary method to prevent at the end of their visit? Condoms - Female Does your partner(s) currently have any STIs? No Completed Gardasil vaccination series? No Counseling Provided: Social Info Question Answer Notes Counseling Provided Please indicate the length of time, in minutes, that counseling was provided. 7 Counseling Was Provided By: meenu Drugs/Alcohol: Social Info Question Answer Notes Drug/Alcohol Use Do you or have you used drugs? Yes, c urrently By what route are you taking drugs? Please check all that apply: Smoking Which drug(s) do you smoke? Marijuana Do you or have you used alcohol? Yes, currently Food Access: Social Info Question Answer Notes Food Access The Client's current access to food is Secure Food Access Relationships: Social Info Question Answer Notes Relationships Has the client exper ienced any of the following: Client has never experienced harmful relationships Housing Social Info Question Answer Notes Housing The client's current living situation is: stable housing Tobacco Use: Social Info Question Answer Notes Tobacco Use: Do you/have you used tobacco? Yes, prateek champagne Encounters Encounter Location Date Provider Diagnosis [facility] [address] [facility] [address] [place], [place] [id number] 10/04/2024 LARRY XIONG Encounter for test, result negative Z32.02 and Encounter for screening for infections with a predominantly sexual mode of transmission Z11.3 Assessments Encounter Date Diagnosis (ICD Code) Assessment Notes Treatment Notes Treatment Clinical Notes Section Notes 10/04/2024 Encounter for test, result negative (ICD-10 - Z32.02) Discussed control, STI screening, emergency contraception, sexual coercion, family involvement and reproductive life planning. Further counseling needed: no further counseling needed, positive result given Referrals given: OB, med AB EGA: 5w, 2d 10/04/2024 Encounter for screening for infections with a predominantly sexual mode of transmission (ICD-10 - Z11.3) Plan Of Treatment No Information Insurance Providers Payer Name Payer Address Payer Phone Subscriber Number Group Number Insured Name Patient Relationship to Insured Coverage Start Date Coverage End Date [place] [address] [place] [id number] [phone] [id number] Mary Colon Self - patient is the insured
== END 2025-02-12 18:24 | disposition left against medical advice (07) ==
PROVIDERS: Physician Assistant Medical; Emergency Provider Emergency Medicine; PCP Family Medicine
DX: R05.9 Cough, unspecified (principal); R06.02 Shortness of breath; R04.2 Hemoptysis; Z03.818 Encounter for observation for suspected exposure to other biological agents ruled out; Z53.29 Procedure and treatment not carried out because of patient's decision for other reasons
CPT/HCPCS: 36415; 71046; 80048; 80076; 83735; 84702; 85025; 87502; 87635; 87651; 99281; 99283

== ENCOUNTER → 2025-02-12 12:54 | Outpatient (BNV) | payer OTHER, SELFPAY | PROVIDERS: PCP Family Medicine; Visit Provider Radiology Diagnostic Radiology | DX: R05.9 Cough, unspecified (principal) | CPT/HCPCS: 71046 ==